=== PATIENT | male | born 1950 | race Caucasian/White ===

== ENCOUNTER → 2019-10-24 12:29 | Outpatient (CLI) | payer MEDICARE, SELFPAY ==
[2019-10-26 12:39] LABS: Peripheral Smear Review Scanned Result
== END ==
PROVIDERS: PCP Emergency Medicine; Visit Provider Emergency Medicine
DX: D64.9 Anemia, unspecified (principal)

== ENCOUNTER → 2019-11-17 08:21 | Outpatient (CLI) | payer MEDICARE, SELFPAY ==
[2019-11-17 08:31] LABS: Alanine Aminotransferase 38 U/L (12-78); Albumin Level 3.2 g/dl (3.5-5.0); Alkaline Phosphatase 508 U/L (38-126); Anion Gap 10.9 mEq/L (5-15); Aspartate Amino Transferase 69 U/L (17-59); Basophils # 0.1 K/mm3 (0-0.2); Blood Urea Nitrogen 33 mg/dl (9-20); Calcium 11.8 mg/dl (8.4-10.2); Carbon Dioxide 28 mmol/L (22.0-30.0); Chloride 105 mmol/L (98-107); Eosinophils % 0.2 % (0.1-12.0); Estimated Glomerular Filt Rate 50 ml/min (>60); GFR (African American) 60 ML/MIN (>60); Globulin 3.2 g/dL (1.3-3.2); Glucose 162 mg/dl (74-100); Hematocrit 36.6 % (42.0-52.0); Hemoglobin 12.5 g/dL (14.1-18.0); Lymphocytes # 1.7 K/mm3 (0.7-4.5); Lymphocytes % 24.7 % (10-50); Mean Corpuscular Hemoglobin 25.6 pg (27.0-31.2); Mean Corpuscular Volume 75.3 fl (80-94); Mean Platelet Volume 8.6 fl (7.4-10.4); Monocytes # 0.4 K/mm3 (0.1-1.0); Monocytes % 5.5 % (1.7-9.3); Neutrophils # 4.7 K/mm3 (1.8-7.8); Neutrophils % 68.6 % (37.0-80.0); Platelet Count 83 K/mm3 (142-424); Potassium 3.9 mmoL/L (3.5-5.1); Red Blood Count 4.87 M/mm3 (4.60-6.20); Red Cell Distribution Width 19.9 % (11.5-17.5); Sodium 140 mmol/L (136-145); Total Protein,Serum 6.4 g/dl (6.3-8.2); White Blood Count 6.8 K/mm3 (4.8-10.8)
[2019-11-17 08:32] LABS: Ammonia 12 umol/L (9-30)
[2019-11-17 08:47] LABS: Bilirubin,Direct 1.4 mg/dl (0.0-0.4); Bilirubin,Indirect 0.6 mg/dL (0.0-0.9)
[2019-11-17 12:35] LABS: Thyroid Stimulating Hormone 2.89 uIU/mL (0.465-4.68)
[2019-11-17 13:10] LABS: Vitamin B12 > 1000 pg/mL (239-931)
[2019-11-17 14:20] LABS: Iron 44 ug/dL (49-181)
[2019-11-17 14:31] LABS: Total Iron Binding Capacity 279 ug/dL (261-462)
[2019-11-17 14:55] LABS: Ferritin 102 ng/ml (17.9-464)
== END ==
PROVIDERS: Visit Provider Emergency Medicine
DX: R41.0 Disorientation, unspecified (principal); R94.5 Abnormal results of liver function studies; D64.9 Anemia, unspecified
CPT/HCPCS: 80053; 82140; 82248; 82607; 82728; 82746; 83540; 83550; 84443; 85025

== ENCOUNTER 2019-11-18 13:44 | Inpatient (IN) | payer OTHER, MEDICARE, SELFPAY ==
[2019-11-18] VITALS (18 sets, daily range): BP systolic 108–141; BP diastolic 70–82; PULSE 88–111; RESP 16–20; TEMP 36.4–36.8; O2SAT 90–99; BMI 24.3; BMI 22.0
--- NOTE | 2019-11-18 13:49 | HMH.EDABDPAI ---
ED Disposition Clinical Impression: Decompensated hepatic cirrhosis, Ileus GI bleed Qualifiers: GI bleed type/associated pathology: unspecified gastrointestinal hemorrhage type Qualified Code(s): K92.2 - Gastrointestinal hemorrhage, unspecified Altered mental status Qualifiers: Altered mental status type: unspecified Qualified Code(s): R41.82 - Altered mental status, unspecified Disposition: Admitted As Inpatient Condition on Discharge: Good Instructions: DI for Acute Abdomen, DI for Altered Mental Status Referrals: PCP,No [Primary Care Provider] - - Critical Care Critical Care Time: No Attestation: On , the high probability of a clinically significant, sudden or life threatening deterioration of the following system(s) required my full and direct attention, intervention and personal management. The time I documented below is in addition to time spent performing reported procedures but includes the following listed in this critical care notation. Medical Decision Making - Nolan Inquiry Pt receiving controlled substance: No Vital Signs: 11/18/19 13:44 11/18/19 14:44 11/18/19 16:00 Temperature 98 F Temperature Source Oral Pulse Rate [Left Radial] 102 H 88 95 H Respiratory Rate 18 18 20 Blood Pressure [Right Arm] 108/70 L 115/73 128/75 Blood Pressure Mean [Right Arm] 82 87 92 Blood Pressure Source [Right Arm] Automatic Cuff Automatic Cuff Blood Pressure Position [Right Arm] Sitting Sitting Sitting 02 Sat by Pulse Oximetry 92 L 99 96 Oxygen Delivery Method Room Air Room Air Room Air - Lab Data Lab Results 11/18/19 13:50: WBC 5.0 D, RBC 4.52 L, Hgb 11.1 L, Hct 34.6 L, MCV 76.6 L, MCH 24.6 L, MCHC 32.1, RDW 20.1 H, Plt Count 65 L, MPV 8.2, Neut % (Auto) 65.0, Lymph % (Auto) 28.1, [place] % (Auto) 5.8, Eos % (Auto) 0.3, Baso % (Auto) 0.7, Neut # (Auto) 3.3, Lymph # (Auto) 1.4, [place] # (Auto) 0.3, Eos # (Auto) 0.0, Baso # (Auto) 0.0 11/18/19 13:50: Sodium 138, Potassium 3.6, Chloride 105, Carbon Dioxide 28, Anion Gap 8.6, BUN 38 H, Creatinine 1.50 H, Estimated Creat Clear 46, Estimated GFR 46 L, Est GFR ( Amer) 56 L, Glucose 174 H, Calcium 11.6 H, Total Bilirubin 2.3 H, AST 90 H D, ALT 42, Alkaline Phosphatase 398 H, Total Protein 6.0 L, Albumin 2.9 L, Globulin 3.1, Albumin/Globulin Ratio 0.9 L, Lipase 141 11/18/19 13:50: Lactate 1.7 11/18/19 13:50: PT 11.3, INR 1.11 H 11/18/19 13:50: SARS-CoV-2 IgG Ab (Rapid) Positive A, SARS-CoV-2 IgM Ab (Rapid) Positive A 11/18/19 14:35: Urine Color Dk yellow, Urine Appearance Cloudy, Urine pH 5.5, Ur Specific [place] >= 1.030, Urine Protein 2+, Urine Glucose (UA) Negative, Urine Ketones Trace, Urine Blood Negative, Urine Nitrate Negative, Urine Bilirubin Negative, Urine Urobilinogen 1.0, Ur Leukocyte Esterase Negative, Urine WBC 3-5, Ur Squamous Epith Cells 3-5 11/18/19 14:35: Stool Occult Blood Positive A 11/18/19 17:00: Ammonia < 9 L Result diagrams: 11/18/19 13:50 11/18/19 13:50 Orders (Tests/Meds): ED MEDICATIONS Discontinued Medications Generic Name Dose Route Start Last Admin Trade Name Freq PRN Reason Stop Dose Admin Lactated Ringer's 1,000 mls @ 999 mls/hr 11/18/19 14:00 11/18/19 14:06 Lactated Ringer's 1000 Ml Bag IV 11/18/19 15:00 999 mls/hr .Q1H1M MAXINE Administration Ceftriaxone Sodium 1 gm/ 50 mls @ 100 mls/hr 11/18/19 15:29 11/18/19 15:41 Sodium Chloride IV 11/18/19 15:58 100 mls/hr ONCE ONE Administration Protocol Pantoprazole Sodium 80 mg/ 100 mls @ 100 mls/hr 11/18/19 15:41 11/18/19 16:00 Sodium Chloride IV 11/18/19 16:40 100 mls/hr ONCE ONE Administration ORDERS Category Date Time Status CT abdomen pelvis wo con Stat Cat Scan 11/18/19 13:51 Taken XR chest AP Stat Exams 11/18/19 13:51 Taken Covid-19 Nasal PCR ([facility]) Routine Lab 11/18/19 17:00 Received Blood Culture Stat Micro 11/18/19 13:50 Received - Radiology Data #1 Image(s): Chest Image Reviewed: Yes I reviewed the p
--- NOTE | 2019-11-18 13:51 | XR_ITS ---
PROCEDURE: XR CHEST AP CLINICAL HISTORY: altered mental status COMPARISON: No exams were available for comparison FINDINGS: The cardiomediastinal silhouette and pulmonary vascularity are within normal limits considering a poor inspiratory effort. There are sternal wire sutures and surgical clips likely from previous bypass procedure. The lungs are clear without infiltrates, suspicious nodules, or pleural effusions. No acute bony abnormalities. IMPRESSION: No acute findings. Dictated by: Dr. Kumar Campbell MD 11/18/2019 19:44 Dr. Kumar Campbell MD in [place] 11/18/2019 19:44
--- NOTE | 2019-11-18 13:51 | CT_ITS ---
PROCEDURE: CT ABDOMEN PELVIS WO CON CLINICAL INDICATION: altered mental status, distended abdomen COMPARISON: No exams were available for comparison TECHNIQUE: Axial images obtained with sagittal and coronal reformats. All CT scans at the facility use one or more dose reduction, viz: automated exposure control, ma/kV adjustment per patient size (including targeted exams where dose is matched to indication, i.e. head), or iterative reconstruction technique. FINDINGS: Lower thorax: There is minimal atelectasis at the right lung base, there is minimal pleural thickening or possibly a tiny pleural effusion left posterior gutter. ABDOMEN: Liver: The liver is normal in size and shows no focal lesions. There is mild cortical nodularity of the liver capsule. There is moderate ascitic fluid surrounding the right lobe of the liver and the spleen. There is ascitic fluid extending along the right pericolic gutter. Gallbladder: The gallbladder is moderately distended but shows no definite gallstones or sludge. Pancreas: No masses or peripancreatic fluid collections. Spleen: Mild splenomegaly with a few scattered punctate calcifications. Adrenals: The right adrenal gland is normal, there is a small nodule left adrenal gland isodense and likely representing an adenoma. Kidneys/ureters: The kidneys are normal in size with no calculi and there is no obstructive uropathy of either kidney. ABDOMEN & PELVIS: Stomach and bowel: The small bowel appears grossly normal though there is moderate ascitic fluid around the small bowel loops. There is a moderate amount stool in the ascending and transverse colon with large amount of stool and gas in the descending and sigmoid colon and rectum. . Peritoneum: Moderate amount of ascitic fluid in abdomen and extending into the pelvis with a large amount in the [place]ouch of [place]. Lymph nodes: No enlarged lymph nodes apparent. Vasculature: There is marked and diffuse arteriosclerotic calcification of the abdominal aorta and proximal iliac arteries but there is no aneurysm. Bones: There are mild multilevel degenerate changes of the lower thoracic and lumbar spine. There are metallic brackets and pedicle screws fusing L5 and S1 stabilizing mild first-degree spondylolisthesis L5 on S1 with bilateral spondylolysis. PELVIS: Reproductive: unremarkable Bladder: There is a Abebe catheter within the urinary bladder which is decompressed with a small amount of air within the urinary bladder secondary to the instrumentation. The prostate is normal size. Appendix: Not definitely identified but there are no findings to suggest appendicitis. IMPRESSION: Moderate abdominal ascites with splenomegaly and mild nodularity of the liver capsule suggesting early cirrhosis of the liver. No evidence of acute intra-abdominal or pelvic pathology Dictated by: Dr. Kumar Campbell MD 11/18/2019 20:04 Dr. Kumar Campbell MD in [place] 11/18/2019 20:04
--- NOTE | 2019-11-18 13:53 | CT_ITS ---
PROCEDURE: CT HEAD/BRAIN WO CON Referring Doctor: Camden Jacobo Patient Age:69Y CLINICAL INDICATION: altered mental status Distended abdomen with change in mental status COMPARISON: No exams were available for comparison TECHNIQUE: Axial images were obtained. All CT scans at the facility use one or more dose reduction, viz: automated exposure control, ma/kV adjustment per patient size (including targeted exams where dose is matched to indication, i.e. head), or iterative reconstruction technique. FINDINGS: No acute intracranial findings. No intracranial hemorrhage. No acute territory infarct identified but the patient has patchy low-density throughout the deep white matter and periventricular regions reflecting chronic small vessel deep white-matter ischemic gliotic changes but difficult to exclude any new features among these but these appear to be old chronic changes but with this there is diffuse cerebral atrophy. Mild ventricular dilatation due to such. There is also an old area encephalomalacia and focal volume loss at the inferior right cerebellar hemisphere which are suggestive of a focal area of old insult and and old infarct. No acute appearing findings.. . No mass or midline shift nor mass effect. No subdural or extra-axial fluid collection is evident. Posterior fossa unremarkable. . Right periorbital swelling which extends through the supra orbital regions and towards the base of the nose of reflecting the recent trauma... Minimal focal hematoma and swelling here. Underlying skull intact. . Nomastoid effusions. Mastoid air cells are well developed and clear. Middle ear clear. IAC's symmetric. [place] air-fluid level. Visualized portions of the paranasal sinuses and orbits unremarkable. IMPRESSION: No acute intracranial findings Diffuse cerebral atrophy, advanced for age Prominent chronic small vessel white-matter ischemic gliotic changes. 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 Right periorbital swelling which extends across base of nose; supraorbital region-reflecting the recent trauma Dictated by: Santosh Fry MD 11/18/2019 17:28 Santosh Fry MD in [place] 11/18/2019 17:28
--- NOTE | 2019-11-18 14:05 | PC.NURSE ---
pt moaning in pain. c/o abd and back pain
[2019-11-18 14:18] LABS: Basophils % 0.7 % (0.1-2.0); Eosinophils % 0.3 % (0.1-12.0); Hematocrit 34.6 % (42.0-52.0); Hemoglobin 11.1 g/dL (14.1-18.0); Lymphocytes # 1.4 K/mm3 (0.7-4.5); Lymphocytes % 28.1 % (10-50); Mean Corpuscular HGB Conc 32.1 g/dL (31.8-35.4); Mean Corpuscular Hemoglobin 24.6 pg (27.0-31.2); Mean Corpuscular Volume 76.6 fl (80-94); Mean Platelet Volume 8.2 fl (7.4-10.4); Monocytes # 0.3 K/mm3 (0.1-1.0); Monocytes % 5.8 % (1.7-9.3); Neutrophils # 3.3 K/mm3 (1.8-7.8); Platelet Count 65 K/mm3 (142-424); Red Blood Count 4.52 M/mm3 (4.60-6.20); Red Cell Distribution Width 20.1 % (11.5-17.5)
[2019-11-18 14:23] LABS: Chloride 105 mmol/L (98-107); Sodium 138 mmol/L (136-145)
[2019-11-18 14:24] LABS: Potassium 3.6 mmoL/L (3.5-5.1)
[2019-11-18 14:25] LABS: INR 1.11 (0.9-1.1); Prothrombin Time 11.3 seconds (9.4-11.8)
[2019-11-18 14:26] LABS: Alanine Aminotransferase 42 U/L (12-78); Alkaline Phosphatase 398 U/L (38-126); Anion Gap 8.6 mEq/L (5-15); Aspartate Amino Transferase 90 U/L (17-59); Bilirubin,Total 2.3 mg/dl (0.2-1.3); Blood Urea Nitrogen 38 mg/dl (9-20); Carbon Dioxide 28 mmol/L (22.0-30.0); Creatinine Clearance Estimated 46 mL/min (50-200); Estimated Glomerular Filt Rate 46 ml/min (>60); GFR (African American) 56 ML/MIN (>60); Lipase 141 U/L (23-300)
[2019-11-18 14:27] LABS: Albumin Level 2.9 g/dl (3.5-5.0); Albumin/Globulin Ratio 0.9 (1.1-1.8); Calcium 11.6 mg/dl (8.4-10.2); Globulin 3.1 g/dL (1.3-3.2); Glucose 174 mg/dl (74-100); Lactic Acid 1.7 mmol/L (0.7-2.1)
[2019-11-18 14:41] LABS: Microscopic, Urine URINE MICROSCOPIC (MICROSCOPIC)
[2019-11-18 14:45] LABS: Appearance,Urine CLOUDY (Clear); Bilirubin,Urine Negative (Negative); Blood, Urine Negative (Negative); Color,Urine DK YELLOW (Yellow); Glucose,Urine (UA) Negative (Negative); Ketones,Urine TRACE (Negative); Leukocyte Esterase,Urine Negative (Negative); Nitrate,Urine Negative (Negative); PH,Urine 5.5 (5.0-8.5); Protein,Urine 2+ (Negative); Specific Gravity, Urine >= 1.030 (1.005-1.030)
[2019-11-18 14:47] LABS: Occult Blood,Stool Positive (Negative)
--- NOTE | 2019-11-18 15:00 | PC.NURSE ---
pt resting appears to comfortable after pain meds given
[2019-11-18 15:52] LABS: Coronavirus 19 IgG Antibody Positive (Negative); Coronavirus 19 IgM Antibody Positive (Negative)
--- NOTE | 2019-11-18 16:00 | PC.NURSE ---
pt resting quietly
--- NOTE | 2019-11-18 17:00 | PC.NURSE ---
pt resting quietly.
--- NOTE | 2019-11-18 17:15 | PC.NURSE ---
spoke with pt's son, kathe martinez, and updated on pt's plan of care
[2019-11-18 17:20] LABS: Ammonia < 9 umol/L (9-30)
--- NOTE | 2019-11-18 18:00 | PC.NURSE ---
sunil nj informed of pt's admission and admitting dx.
--- NOTE | 2019-11-18 18:10 | PC.NURSE ---
called lab regarding nasal covid results, states swab is just now starting to run results
--- NOTE | 2019-11-18 18:56 | PC.NURSE ---
iv infusing no redness or swelling noted at site
--- NOTE | 2019-11-18 20:40 | PC.NURSE ---
called lab to check on covid results they stated 20 minutes left
--- NOTE | 2019-11-18 21:49 | PC.NURSE ---
report given to GABRIELLA Galarza
--- NOTE | 2019-11-18 22:05 | PC.NURSE ---
patient up to floor via stretcher.
--- NOTE | 2019-11-18 22:20 | HMH.HP ---
*Admission Date: 11/18/19 *Chief complaint: mental status change *History of present illness: this elderly pt was sent from [facility] with change in mental status - -year-old male with a history of dementia and cirrhosis [facility] for worsening altered mental status and abdominal pain. Patient is nonverbal on initial examination response to exam with grimace but is awake and will redirect to verbal cues. History from EMS demonstrates that he is normally talkative at baseline but has had acute worsening no history of fever, vomiting, or [id number] male with a history of cirrhosis and dementia who presents with worsening altered mental status and abdominal distention with tenderness on exam. Patient is hemodynamically stable and afebrile on arrival. Concern for intra-abdominal infection/acute abdomen. ET abdomen pelvis is ordered with contrast. Chest x-ray is also ordered as well as a head CT for altered mental status and infectious work-up. Laboratory data significant for thrombocytopenia and anemia. Significant coagulopathy based on INR. Occult stool is positive suggesting GI bleed. Due to history of cirrhosis and no evidence of acute hematemesis or variceal bleeding the patient was started on ceftriaxone IV and given a bolus dose of IV pantoprazole. CT of the abdomen pelvis demonstrates no acute mechanical obstruction but evidence of an ileus and moderate ascites. Patient will be admitted for decompensated cirrhosis and worsening altered mental status with a abdominal ileus. Patient was noted to be IgM and IgG plasma positive for COVID-19 and a rapid swab was ordered. Patient was admitted for further evaluation and management. [facility] History I have reviewed the patient's past medical history: Yes Medical History: Reports:: Chronic Obstructive Pulmonary Disease (COPD), Dementia, Diabetes Mellitus Type 2, Hepatitis (autoimmune), Hyperlipidemia *Have you ever received a pneumonia vaccine?: No *Have you received a flu vaccine this season?: No - *Social History Smoking Status: Never smoker Alcohol Intake: never *Occupational Status:: other Housing: other Household Members: other *Travel in the last 8 weeks: None Family Hx:: Unable to obtain Review of Systems - Review of Systems Review of systems:: pertinent systems reviewed and negative unless documented below Meds Home Medications Medication Instructions Recorded Confirmed Type amlodipine 10 mg tablet 10 mg PO DAILY 11/17/19 11/19/19 History aspirin 81 mg tablet,delayed 81 mg PO DAILY 11/17/19 11/19/19 History release atorvastatin 80 mg tablet 80 mg PO DAILY 11/17/19 11/19/19 History donepezil 5 mg tablet 5 mg PO DAILY 11/17/19 11/19/19 History duloxetine 60 mg capsule,delayed 60 mg PO DAILY 11/17/19 11/19/19 History release gabapentin 100 mg capsule 100 mg PO QHS cap 11/17/19 11/19/19 History hydrocodone 5 mg-acetaminophen 325 1 tab PO BID PRN 11/17/19 11/19/19 History mg tablet lactulose 10 gram/15 mL oral 20 g PO TID 11/17/19 11/19/19 History solution metformin 500 mg tablet 500 mg PO BID 11/17/19 11/19/19 History mv,Ca,oar-iljn-zgusf acid-lutein 1 tab PO DAILY tab 11/17/19 11/18/19 History 18 mg iron-400 mcg-6 mg tablet pantoprazole 40 mg granules 40 mg PO DAILY 11/17/19 11/19/19 History delayed-release for susp in packet polyethylene glycol 3350 17 17 g PO DAILY 11/17/19 11/19/19 History gram/dose oral powder ursodiol 500 mg tablet 500 mg PO BID 11/17/19 11/19/19 History Allergies Allergy/AdvReac Type Severity Reaction Status Date / Time No Known Allergies Allergy Verified 11/18/19 13:50 Exam Vital signs and Labs for Last 24 Hours: Temp Pulse Resp BP Pulse Ox 98.2 F 108 H 19 128/77 90 L 11/18/19 21:52 11/18/19 21:56 11/18/19 21:56 11/18/19 21:56 11/18/19 21:56 Laboratory Results - last 24 hr 11/18/19 13:50: WBC 5.0 D, RBC 4.52 L, Hgb 11.1 L, Hct 34.6 L, MCV 76.6 L, M
--- NOTE | 2019-11-19 03:59 | PC.NURSE ---
PT. ABLE TO FOLLOW SOME COMMANDS, UNABLE TO STATE NAME, , YEAR OR PLACE; IS CONFUSED BUT IS ABLE TO STATE SIMPLE NEEDS. ABD DIST WITH ACTIVE BOWEL SOUNDS NOTED. SITE NOTED TO BUTTOCKS, WHITE DRIED EXUDATE WITH SURROUNDING REDNESS NOTED, PICTURES ON CHART; T/R Q2H. PT. CURRENTLY RESTING IN BED WITH EYES CLOSED AT THIS TIME.
[2019-11-19 04:00] VITALS: BP 129/76; PULSE 111; RESP 16; TEMP 36.9; O2SAT 88
[2019-11-19 05:00] VITALS: BMI 22.0
[2019-11-19 06:15] LABS: POC Glucose,Bedside 130 (70-110)
[2019-11-19 07:14] LABS: Basophils % 0.4 % (0.1-2.0); Eosinophils % 0.4 % (0.1-12.0); Hematocrit 31.6 % (42.0-52.0); Hemoglobin 10.8 g/dL (14.1-18.0); Lymphocytes # 1.4 K/mm3 (0.7-4.5); Lymphocytes % 26.3 % (10-50); Mean Corpuscular HGB Conc 34.2 g/dL (31.8-35.4); Mean Corpuscular Hemoglobin 25.3 pg (27.0-31.2); Mean Corpuscular Volume 73.8 fl (80-94); Mean Platelet Volume 8.8 fl (7.4-10.4); Monocytes # 0.3 K/mm3 (0.1-1.0); Monocytes % 4.8 % (1.7-9.3); Neutrophils # 3.6 K/mm3 (1.8-7.8); Neutrophils % 68.1 % (37.0-80.0); Platelet Count 60 K/mm3 (142-424); Red Blood Count 4.28 M/mm3 (4.60-6.20); Red Cell Distribution Width 20.2 % (11.5-17.5); White Blood Count 5.4 K/mm3 (4.8-10.8)
[2019-11-19 07:17] LABS: Chloride 107 mmol/L (98-107)
[2019-11-19 07:18] LABS: Potassium 3.7 mmoL/L (3.5-5.1); Sodium 138 mmol/L (136-145)
[2019-11-19 07:20] LABS: Blood Urea Nitrogen 41 mg/dl (9-20); Creatinine Clearance Estimated 40 mL/min (50-200); Estimated Glomerular Filt Rate 43 ml/min (>60); GFR (African American) 52 ML/MIN (>60)
[2019-11-19 07:21] LABS: Anion Gap 6.7 mEq/L (5-15); Calcium 11.3 mg/dl (8.4-10.2); Carbon Dioxide 28 mmol/L (22.0-30.0); Glucose 136 mg/dl (74-100); Magnesium 2.2 mg/dl (1.6-2.3)
[2019-11-19 08:00] VITALS: BP 139/89; PULSE 110; PULSE 120; RESP 18; TEMP 37.7; O2SAT 92
--- NOTE | 2019-11-19 08:54 | HMH.ACPN2 ---
Internal Medicine - PN: Subj *Date: 11/20/19 *Time: 05:03 Interval history: more alert at this time - no gi bleeding Exam Vital signs and Labs for Last 24 Hours: Temp Pulse Resp BP Pulse Ox 98.5 F 111 H 16 129/76 88 L 11/19/19 04:00 11/19/19 04:00 11/19/19 04:00 11/19/19 04:00 11/19/19 04:00 Laboratory Results - last 24 hr 11/18/19 13:50: WBC 5.0 D, RBC 4.52 L, Hgb 11.1 L, Hct 34.6 L, MCV 76.6 L, MCH 24.6 L, MCHC 32.1, RDW 20.1 H, Plt Count 65 L, MPV 8.2, Neut % (Auto) 65.0, Lymph % (Auto) 28.1, [place] % (Auto) 5.8, Eos % (Auto) 0.3, Baso % (Auto) 0.7, Neut # (Auto) 3.3, Lymph # (Auto) 1.4, [place] # (Auto) 0.3, Eos # (Auto) 0.0, Baso # (Auto) 0.0 11/18/19 13:50: Sodium 138, Potassium 3.6, Chloride 105, Carbon Dioxide 28, Anion Gap 8.6, BUN 38 H, Creatinine 1.50 H, Estimated Creat Clear 46, Estimated GFR 46 L, Est GFR ( Amer) 56 L, Glucose 174 H, Calcium 11.6 H, Total Bilirubin 2.3 H, AST 90 H D, ALT 42, Alkaline Phosphatase 398 H, Total Protein 6.0 L, Albumin 2.9 L, Globulin 3.1, Albumin/Globulin Ratio 0.9 L, Lipase 141 11/18/19 13:50: Lactate 1.7 11/18/19 13:50: PT 11.3, INR 1.11 H 11/18/19 13:50: SARS-CoV-2 IgG Ab (Rapid) Positive A, SARS-CoV-2 IgM Ab (Rapid) Positive A 11/18/19 14:35: Urine Color Dk yellow, Urine Appearance Cloudy, Urine pH 5.5, Ur Specific [place] >= 1.030, Urine Protein 2+, Urine Glucose (UA) Negative, Urine Ketones Trace, Urine Blood Negative, Urine Nitrate Negative, Urine Bilirubin Negative, Urine Urobilinogen 1.0, Ur Leukocyte Esterase Negative, Urine WBC 3-5, Ur Squamous Epith Cells 3-5 11/18/19 14:35: Stool Occult Blood Positive A 11/18/19 17:00: Ammonia < 9 L 11/19/19 06:01: POC Glucose 130 H 11/19/19 06:50: WBC 5.4, RBC 4.28 L, Hgb 10.8 L, Hct 31.6 L, MCV 73.8 L, MCH 25.3 L, MCHC 34.2, RDW 20.2 H, Plt Count 60 L, MPV 8.8, Neut % (Auto) 68.1, Lymph % (Auto) 26.3, [place] % (Auto) 4.8, Eos % (Auto) 0.4, Baso % (Auto) 0.4, Neut # (Auto) 3.6, Lymph # (Auto) 1.4, [place] # (Auto) 0.3, Eos # (Auto) 0.0, Baso # (Auto) 0.0 11/19/19 06:50: Sodium 138, Potassium 3.7, Chloride 107, Carbon Dioxide 28, Anion Gap 6.7, BUN 41 H, Creatinine 1.60 H, Estimated Creat Clear 40, Estimated GFR 43 L, Est GFR ( Amer) 52 L, Glucose 136 H D, Calcium 11.3 H, Magnesium 2.2 I & O for Last 24 hours: Intake & Output 11/16/19 11/17/19 11/18/19 11/19/19 11:59 11:59 11:59 11:59 Output Total 650 / 650 Balance -650 / -650 Weight 145 lb 9.598 oz Microbiology Reports for the Last 24 Hours: Microbiology 11/18/19 17:00 Nasopharyngeal Coronavirus COVID-19 PCR - Final - Constitutional no acute distress - *Routine HEENT Exam Head: Present: normocephalic Eye: Present: EOMI, PERRL. Absent: conjunctival icterus ENT: Present: mucous membranes dry - *Routine Neck Exam Absent: JVD - *Routine Respiratory Exam Present: CTA bilaterally - *Routine Cardiovascular Exam Present: RRR. Absent: murmur - *Routine Abdominal Exam Present: soft. Absent: tenderness - *Routine Extremities Exam Absent: edema - *Routine Skin Exam Present: intact - *Routine Neurological Exam Present: alert, CN II-XII intact - Routine Psychiatric Exam Present: normal affect Assessment and Plan (1) Acute delirium Status: Acute Category: Medical Code(s): R41.0 - Disorientation, unspecified (2) Diabetes mellitus Status: Acute Qualifiers: Diabetes mellitus type: type 2 Diabetes mellitus longterm insulin use: unspecified longterm insulin use status Diabetes mellitus complication status: with other specified complication Qualified Code(s): E11.69 - Type 2 diabetes mellitus with other specified complication Category: Medical Code(s): E11.9 - Type 2 diabetes mellitus without complications (3) Hypercalcemia Status: Acute Category: Medical Code(s): E83.52 - Hypercalcemia (4) Thrombocytopenia Status: Acute Category: Medical Code(s): D69.6 - Thrombocytopenia, unspecified
--- NOTE | 2019-11-19 11:52 | P.CONPHA_ITS ---
[facility] Pharmacy VTE Monitoring - Patient Demographics Admission date: 11/19/19 Report Date: 11/19/19 Time: 11:52 Allergies/Adverse Reactions: Patient Allergies No Known Allergies Allergy (Verified 11/18/19 13:50) Height: 1.73 m Weight: 66.043 kg Patient Problems: Current Active Problems Decompensated hepatic cirrhosis (Acute) GI bleed (Acute) Altered mental status (Acute) Ileus (Acute) Acute delirium (Acute) Diabetes mellitus (Acute) Hypercalcemia (Acute) Thrombocytopenia (Acute) Renal insufficiency (Acute) Ascites (Acute) Splenomegaly (Acute) Cirrhosis (Acute) S/P CABG (coronary artery bypass graft) (Acute) Cerebral atrophy (Acute) Dementia (Acute) COVID-19 virus IgM antibody detected (Acute) COVID-19 virus IgG antibody detected (Acute) - VTE Risk Labs: VTE Related Lab Results Hgb 10.8 g/dL (14.1-18.0) L 11/19/19 06:50 Hct 31.6 % (42.0-52.0) L 11/19/19 06:50 Plt Count 60 K/mm3 (142-424) L 11/19/19 06:50 PT 11.3 seconds (9.4-11.8) 11/18/19 13:50 INR 1.11 (0.9-1.1) H 11/18/19 13:50 BUN 41 mg/dl (9-20) H 11/19/19 06:50 Creatinine 1.60 mg/dl (0.66-1.25) H 11/19/19 06:50 Estimated Creat Clear 40 mL/min (50-200) 11/19/19 06:50 - Prophylaxis Types of VTE Prophylaxis: TEDS Knee High (MARIA ESTHER HOSE ORDER PLACED.) Location of Applied Device: Bilateral Lower Extremeties
[2019-11-19 13:57] LABS: POC Glucose,Bedside 131 (70-110)
--- NOTE | 2019-11-19 14:00 | PC.NURSE ---
PT IS RESTING IN BED ON HIS LEFT SIDE. PT MOANS IN PAIN EVERY TIME HE IS MOVED OR REPOSITIONED. UNABLE TO VOICE HIS NAME/. RASH NOTED ALL OVER BODY ( PCP AWARE AND HE STATES THIS IS A CHRONIC ISSUE) UNSTAGEABLE ULCER NOTED TO COCCYX (MALODOROUS) AND RT HEEL (HEEL PROTECTORS IN PLACE) DRESSING C/D/I TO THE COCCYX. POA WAS CALLED TO GET CONSENT FOR PICTURES AND ALSO TO VERIFY DNR STATUS. ORAL CARE PROVIDED. ABDOMEN SOFT/NON TENDER WITH ACTIVE BOWEL SOUNDS. G-TUBE IN PLACE. PCP WANTS TUBE FEEDS ON HOLD FOR NOW. LUNG SOUNDS HAVE SCATTERED RHONCHI. VSS. WILL CONTINUE TO MONITOR.
[2019-11-19 15:53] VITALS: BP 138/78; PULSE 121; RESP 18; TEMP 37.7; O2SAT 91
[2019-11-19 18:22] LABS: POC Glucose,Bedside 133 (70-110)
--- NOTE | 2019-11-19 19:05 | PC.NURSE ---
PT IS RESTING IN BED. PT WILL RESPOND TO VERBAL STIMULI BUT IS UNABLE TO VERBALIZE HIS NAME/. TURNED AND REPOSITIONED Q2H. MILD ASCITES NOTED TO THE ABDOMEN. LUNG SOUNDS CLEAR. HYPOACTIVE BOWEL SOUNDS. TEDS NOTED TO BLE. ORAL CARE PROVIDED FREQUENTLY. AREA NOTED TO THE COCCYX. VSS. PT HAS NOT HAD A BOWEL MOVEMENT THIS SHIFT. WILL CONTINUE TO MONITOR.
[2019-11-19 19:21] VITALS: BP 153/77; PULSE 118; RESP 22; TEMP 36.7; O2SAT 90
[2019-11-19 19:58] VITALS: PULSE 118; O2SAT 90
[2019-11-19 20:50] LABS: POC Glucose,Bedside 151 (70-110)
[2019-11-20 04:28] VITALS: BP 135/82; PULSE 113; RESP 24; TEMP 36.4; O2SAT 95
--- NOTE | 2019-11-20 04:34 | PC.NURSE ---
PT HAS SLEPT ENTIRE SHIFT. PT MOANS WHEN YOU SAY HIS NAME OR REPOSITION HIM BUT UNABLE TO ANSWER QUESTIONS TO DETERMINE LEVEL OF ORIENTATION. PT HAS BEEN TURNED AND ORAL CARE Q2. LUNGS HAVE RHONCHI THROUGHOUT AND O2 SATURATION IN LOW TO MID 90'S ON 2LNC. ABDOMEN IS ROUND, DISTENDED AND NON-TENDER WITH ACTIVE BS IN ALL QUADS. NO BM THIS SHIFT. PACE CATHETER IS SECURE, PATENT, AND DRAINING DARK YELLOW URINE. HEART RATE IS REGULAR. NO DISTRESS NOTED. VSS. WILL CONTINUE TO MONITOR
[2019-11-20 05:33] VITALS: BMI 21.8
[2019-11-20 05:50] LABS: POC Glucose,Bedside 147 (70-110)
[2019-11-20 07:28] LABS: Chloride 110 mmol/L (98-107); Potassium 3.3 mmoL/L (3.5-5.1); Sodium 141 mmol/L (136-145)
[2019-11-20 07:29] LABS: Basophils % 0.4 % (0.1-2.0); Eosinophils % 0.3 % (0.1-12.0); Hematocrit 30.2 % (42.0-52.0); Hemoglobin 10.3 g/dL (14.1-18.0); Lymphocytes # 1.2 K/mm3 (0.7-4.5); Lymphocytes % 22.2 % (10-50); Mean Corpuscular HGB Conc 34.1 g/dL (31.8-35.4); Mean Corpuscular Hemoglobin 25.4 pg (27.0-31.2); Mean Corpuscular Volume 74.5 fl (80-94); Mean Platelet Volume 9.1 fl (7.4-10.4); Monocytes # 0.3 K/mm3 (0.1-1.0); Monocytes % 6.5 % (1.7-9.3); Neutrophils # 3.7 K/mm3 (1.8-7.8); Neutrophils % 70.6 % (37.0-80.0); Platelet Count 67 K/mm3 (142-424); Red Blood Count 4.06 M/mm3 (4.60-6.20); Red Cell Distribution Width 20.3 % (11.5-17.5); White Blood Count 5.2 K/mm3 (4.8-10.8)
[2019-11-20 07:31] LABS: Anion Gap 10.3 mEq/L (5-15); Blood Urea Nitrogen 46 mg/dl (9-20); Calcium 10.8 mg/dl (8.4-10.2); Carbon Dioxide 24 mmol/L (22.0-30.0); Creatinine Clearance Estimated 37 mL/min (50-200); Estimated Glomerular Filt Rate 40 ml/min (>60); GFR (African American) 48 ML/MIN (>60); Glucose 151 mg/dl (74-100)
[2019-11-20 08:00] VITALS: BP 142/85; PULSE 118; RESP 20; TEMP 36.7; O2SAT 93
--- NOTE | 2019-11-20 08:27 | HMH.ACPN2 ---
Internal Medicine - PN: Subj *Date: 11/21/19 *Time: 03:27 Interval history: pt doing ok- labs ok - will add abx for possible abd infection Exam Vital signs and Labs for Last 24 Hours: Temp Pulse Resp BP Pulse Ox 98.1 F 118 H 20 142/85 H 93 L 11/20/19 08:00 11/20/19 08:00 11/20/19 08:00 11/20/19 08:00 11/20/19 08:00 Laboratory Results - last 24 hr 11/19/19 12:10: POC Glucose 131 H 11/19/19 16:14: POC Glucose 133 H 11/19/19 20:37: POC Glucose 151 H 11/20/19 05:43: POC Glucose 147 H 11/20/19 06:46: WBC 5.2, RBC 4.06 L, Hgb 10.3 L, Hct 30.2 L, MCV 74.5 L, MCH 25.4 L, MCHC 34.1, RDW 20.3 H, Plt Count 67 L, MPV 9.1, Neut % (Auto) 70.6, Lymph % (Auto) 22.2, [place] % (Auto) 6.5, Eos % (Auto) 0.3, Baso % (Auto) 0.4, Neut # (Auto) 3.7, Lymph # (Auto) 1.2, [place] # (Auto) 0.3, Eos # (Auto) 0.0, Baso # (Auto) 0.0 11/20/19 06:46: Sodium 141, Potassium 3.3 L, Chloride 110 H, Carbon Dioxide 24, Anion Gap 10.3, BUN 46 H, Creatinine 1.70 H, Estimated Creat Clear 37, Estimated GFR 40 L, Est GFR ( Amer) 48 L, Glucose 151 H, Calcium 10.8 H I & O for Last 24 hours: Intake & Output 11/17/19 11/18/19 11/19/19 11/20/19 11:59 11:59 11:59 11:59 Intake Total 426 / 426 342 / 342 Output Total 650 / 650 700 / 700 Balance -224 / -224 -358 / -358 Weight 145 lb 9.598 oz 144 lb 2 oz - Constitutional no acute distress, chronically ill appearing - *Routine HEENT Exam Head: Present: normocephalic Eye: Present: EOMI, PERRL. Absent: conjunctival icterus ENT: Present: mucous membranes dry - *Routine Neck Exam Present: supple - *Routine Respiratory Exam Present: decreased breath sounds - *Routine Cardiovascular Exam Present: RRR, murmur - *Routine Abdominal Exam Present: soft, tenderness - *Routine Extremities Exam Absent: calf tenderness - *Routine Skin Exam Present: intact - *Routine Neurological Exam Present: CN II-XII intact - Routine Psychiatric Exam Present: unable to assess Assessment and Plan (1) Acute delirium Status: Acute Category: Medical Code(s): R41.0 - Disorientation, unspecified (2) Diabetes mellitus Status: Acute Qualifiers: Diabetes mellitus type: type 2 Diabetes mellitus group home insulin use: unspecified progress clerk insulin use status Diabetes mellitus complication status: with other specified complication Qualified Code(s): E11.69 - Type 2 diabetes mellitus with other specified complication Category: Medical Code(s): E11.9 - Type 2 diabetes mellitus without complications (3) Hypercalcemia Status: Acute Category: Medical Code(s): E83.52 - Hypercalcemia (4) Thrombocytopenia Status: Acute Category: Medical Code(s): D69.6 - Thrombocytopenia, unspecified (5) Renal insufficiency Status: Acute Category: Medical Code(s): N28.9 - Disorder of kidney and ureter, unspecified (6) Ascites Status: Acute Qualifiers: Ascites type: other type Qualified Code(s): R18.8 - Other ascites Category: Medical Code(s): R18.8 - Other ascites (7) Splenomegaly Status: Acute Category: Medical Code(s): R16.1 - Splenomegaly, not elsewhere classified (8) Cirrhosis Status: Acute Qualifiers: Hepatic cirrhosis type: unspecified hepatic cirrhosis Ascites presence: with ascites Qualified Code(s): K74.60 - Unspecified cirrhosis of liver; R18.8 - Other ascites Category: Medical Code(s): K74.60 - Unspecified cirrhosis of liver (9) S/P CABG (coronary artery bypass graft) Status: Acute Category: Surgical Code(s): Z95.1 - Presence of aortocoronary bypass graft (10) Cerebral atrophy Status: Acute Category: Medical Code(s): G31.9 - Degenerative disease of nervous system, unspecified (11) Dementia Status: Acute Qualifiers: Dementia type: unspecified type Dementia behavioral disturbance: without behavioral disturbance Qualified Code(s): F03.90 - Unspecified dementia without behavioral disturbance
[2019-11-20 11:15] VITALS: BMI 21.8
[2019-11-20 13:01] LABS: POC Glucose,Bedside 148 (70-110)
[2019-11-20 16:00] VITALS: BP 134/83; PULSE 74; RESP 20; TEMP 36.6; O2SAT 100
--- NOTE | 2019-11-20 17:30 | PC.NURSE ---
PT IS RESTING IN BED. NO COMPLAINTS AT THIS TIME. PT WILL RESPOND TO VERBAL STIMULI BUT HAS NOT YET VERBALIZED HIS NAME OR . TURN AND REPOSITIONED Q2H. PT HAS HAD A TOTAL OF 3 LARGE SOFT/DARK TARRY STOOLS THIS SHIFT. (PCP NOTIFIED). PCP STATED TO ORDER A CBC FOR 2100 THIS EVENING AND HE WOULD LIKELY HAVE SEE PT TOMORROW. PT HAS BEEN NPO SINCE ADMISSION. ORAL CARE PROVIDED FREQUENTLY. LUNG SOUNDS CLEAR. BOWEL SOUNDS NORMAL . ABDOMEN IS SOFT/TENDER WITH ASCITES NOTED. O2 SATURATION HAS MAINTAINED 90-95% ON 2 L NC. PT HAS A SMALL AREA NOTED TO THE COCCYX. WILL CONTINUE TO MONITOR.
[2019-11-20 18:06] VITALS: O2SAT 92
[2019-11-20 18:31] LABS: POC Glucose,Bedside 140 (70-110)
[2019-11-20 20:00] VITALS: PULSE 120; RESP 22
[2019-11-20 20:30] LABS: POC Glucose,Bedside 141 (70-110)
[2019-11-20 20:52] VITALS: BP 135/59; PULSE 120; RESP 18; TEMP 36.8; O2SAT 92
[2019-11-20 21:21] LABS: Basophils % 0.5 % (0.1-2.0); Eosinophils % 0.3 % (0.1-12.0); Hematocrit 31.9 % (42.0-52.0); Hemoglobin 11.1 g/dL (14.1-18.0); Lymphocytes # 1.2 K/mm3 (0.7-4.5); Lymphocytes % 20.5 % (10-50); Mean Corpuscular HGB Conc 34.7 g/dL (31.8-35.4); Mean Corpuscular Hemoglobin 25.7 pg (27.0-31.2); Mean Platelet Volume 10.4 fl (7.4-10.4); Monocytes # 0.3 K/mm3 (0.1-1.0); Monocytes % 5.1 % (1.7-9.3); Neutrophils # 4.3 K/mm3 (1.8-7.8); Neutrophils % 73.7 % (37.0-80.0); Platelet Count 62 K/mm3 (142-424); Red Blood Count 4.31 M/mm3 (4.60-6.20); Red Cell Distribution Width 20.5 % (11.5-17.5); White Blood Count 5.9 K/mm3 (4.8-10.8)
[2019-11-21 04:26] VITALS: BP 146/86; PULSE 64; RESP 22; TEMP 36.9; O2SAT 95
--- NOTE | 2019-11-21 04:34 | PC.NURSE ---
shift summary, pt has rested well t/o shift, has had 3 loose stools this shift, black tarry, loose and large, abdomen is soft, tender with ascites noted, catheter remains in place, draining cloudy, wesley urine, strong smelling urine, pt has remained on 2L NC with O2 sats from 92-95%
[2019-11-21 05:30] VITALS: BMI 21.8
[2019-11-21 05:41] LABS: POC Glucose,Bedside 140 (70-110)
[2019-11-21 06:25] LABS: Chloride 114 mmol/L (98-107); Potassium 3.3 mmoL/L (3.5-5.1); Sodium 144 mmol/L (136-145)
[2019-11-21 06:27] LABS: Alanine Aminotransferase 51 U/L (12-78); Ammonia 36 umol/L (9-30); Aspartate Amino Transferase 103 U/L (17-59); Bilirubin,Direct 0.6 mg/dl (0.0-0.4); Bilirubin,Indirect 1.2 mg/dL (0.0-0.9); Bilirubin,Total 1.8 mg/dl (0.2-1.3); Bilirubin,Unconjugated 1.2 mg/dL (0.0-1.1); Blood Urea Nitrogen 49 mg/dl (9-20); Creatinine Clearance Estimated 37 mL/min (50-200); Estimated Glomerular Filt Rate 40 ml/min (>60); GFR (African American) 48 ML/MIN (>60)
[2019-11-21 06:28] LABS: Albumin Level 2.7 g/dl (3.5-5.0); Alkaline Phosphatase 365 U/L (38-126); Anion Gap 11.3 mEq/L (5-15); Carbon Dioxide 22 mmol/L (22.0-30.0); Glucose 162 mg/dl (74-100); Total Protein,Serum 5.9 g/dl (6.3-8.2)
[2019-11-21 06:32] LABS: Basophils % 0.3 % (0.1-2.0); Hematocrit 32.7 % (42.0-52.0); Hemoglobin 11.1 g/dL (14.1-18.0); Lymphocytes # 1.1 K/mm3 (0.7-4.5); Lymphocytes % 16.3 % (10-50); Mean Corpuscular HGB Conc 34.1 g/dL (31.8-35.4); Mean Corpuscular Hemoglobin 25.3 pg (27.0-31.2); Mean Corpuscular Volume 74.3 fl (80-94); Mean Platelet Volume 10.4 fl (7.4-10.4); Monocytes # 0.4 K/mm3 (0.1-1.0); Monocytes % 5.4 % (1.7-9.3); Neutrophils # 5.5 K/mm3 (1.8-7.8); Platelet Count 57 K/mm3 (142-424); Red Cell Distribution Width 20.6 % (11.5-17.5)
[2019-11-21 08:00] VITALS: BP 140/74; PULSE 69; RESP 22; TEMP 37.7; O2SAT 95
[2019-11-21 08:15] VITALS: RESP 20; O2SAT 95
--- NOTE | 2019-11-21 09:03 | HMH.ACPN2 ---
Internal Medicine - PN: Subj *Date: 11/21/19 *Time: 08:30 Interval history: pt laying in bed Exam Vital signs and Labs for Last 24 Hours: Temp Pulse Resp BP Pulse Ox 98.4 F 64 22 146/86 H 95 11/21/19 04:26 11/21/19 04:26 11/21/19 04:26 11/21/19 04:26 11/21/19 04:26 Laboratory Results - last 24 hr 11/20/19 11:33: POC Glucose 148 H 11/20/19 16:10: POC Glucose 140 H 11/20/19 20:22: POC Glucose 141 H 11/20/19 21:10: WBC 5.9, RBC 4.31 L, Hgb 11.1 L, Hct 31.9 L, MCV 74.0 L, MCH 25.7 L, MCHC 34.7, RDW 20.5 H, Plt Count 62 L, MPV 10.4, Neut % (Auto) 73.7, Lymph % (Auto) 20.5, [place] % (Auto) 5.1, Eos % (Auto) 0.3, Baso % (Auto) 0.5, Neut # (Auto) 4.3, Lymph # (Auto) 1.2, [place] # (Auto) 0.3, Eos # (Auto) 0.0, Baso # (Auto) 0.0 11/21/19 05:29: POC Glucose 140 H 11/21/19 05:55: WBC 7.0, RBC 4.40 L, Hgb 11.1 L, Hct 32.7 L, MCV 74.3 L, MCH 25.3 L, MCHC 34.1, RDW 20.6 H, Plt Count 57 L, MPV 10.4, Neut % (Auto) 78.0, Lymph % (Auto) 16.3, [place] % (Auto) 5.4, Eos % (Auto) 0.0 L, Baso % (Auto) 0.3, Neut # (Auto) 5.5, Lymph # (Auto) 1.1, [place] # (Auto) 0.4, Eos # (Auto) 0.0, Baso # (Auto) 0.0 11/21/19 05:55: Sodium 144, Potassium 3.3 L, Chloride 114 H, Carbon Dioxide 22, Anion Gap 11.3, BUN 49 H, Creatinine 1.70 H, Estimated Creat Clear 37, Estimated GFR 40 L, Est GFR ( Amer) 48 L, Glucose 162 H, Calcium 11.0 H, Total Bilirubin 1.8 H, Direct Bilirubin 0.6 H, Conjugated Bilirubin 0.0, Indirect Bilirubin 1.2 H, Unconjugated Bilirubin 1.2 H, AST 103 H, ALT 51, Alkaline Phosphatase 365 H, Total Protein 5.9 L, Albumin 2.7 L 11/21/19 05:55: Ammonia 36 H I & O for Last 24 hours: Intake & Output 11/18/19 11/19/19 11/20/19 11/21/19 11:59 11:59 11:59 11:59 Intake Total 426 / 426 342 / 342 2716 / 2716 Output Total 650 / 650 700 / 700 575 / 575 Balance -224 / -224 -358 / -358 2141 / 2141 Weight 145 lb 9.598 oz 144 lb 2.917 oz 144 lb 2 oz Microbiology Reports for the Last 24 Hours: Microbiology 11/18/19 13:50 Blood Blood Culture - Preliminary NO GROWTH AFTER 48 HOURS 11/18/19 13:50 Blood Blood Culture - Preliminary NO GROWTH AFTER 48 HOURS - Constitutional no acute distress, thin, chronically ill appearing - *Routine HEENT Exam Head: Present: normocephalic Eye: Present: PERRL ENT: Present: mucous membranes moist - *Routine Neck Exam Present: supple. Absent: lymphadenopathy - *Routine Respiratory Exam Present: CTA bilaterally - *Routine Cardiovascular Exam Present: RRR - *Routine Abdominal Exam Present: soft, normoactive bowel sounds. Absent: tenderness, distended, guarding - *Routine Extremities Exam Present: normal capillary refill. Absent: cyanosis, clubbing, edema - *Routine Skin Exam Present: warm. 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 insulin use status Diabetes mellitus complication status: with other specified complication Qualified Code(s): E11.69 - Type 2 diabetes mellitus with other specified complication Category: Medical Code(s): E11.9 - Type 2 diabetes mellitus without complications (3) Hypercalcemia Status: Acute Category: Medical Code(s): E83.52 - Hypercalcemia (4) Thrombocytopenia Status: Acute Category: Medical Code(s): D69.6 - Thrombocytopenia, unspecified (5) Renal insufficiency Status: Acute Category: Medical Code(s): N28.9 - Disorder of kidney and ureter, unspecified (6) Ascites Status: Acute Qualifiers: Ascites type: other type Qualified Code(s): R18.8 - Other ascites Category: Medical Code(s): R18.8
--- NOTE | 2019-11-21 09:07 | PC.NURSE ---
SPOKE TO LUCIANO (PRE OP) ABOUT M[facility]OZ CONSULT.
--- NOTE | 2019-11-21 10:47 | SW/DCPLANNER ---
I have spoke with Deepika from [facility]. Deepika has stated that this patient is currently I[facility] level of care. Patient information has been faxed to Deepika. Discharge date is unknown at this time but I continue to update Deepika.
[2019-11-21 12:50] LABS: POC Glucose,Bedside 169 (70-110)
[2019-11-21 16:00] VITALS: BP 126/62; PULSE 120; RESP 20; TEMP 36.9; O2SAT 92
--- NOTE | 2019-11-21 16:15 | PC.NURSE ---
Called down to post op where Dr. Girons was at, asked kary walton to ask if was going to round. Marixa Walton RN states she will call me back
--- NOTE | 2019-11-21 16:20 | PC.NURSE ---
No changed noted from previous assessment. Patient a/o x0, arousal to name and touch. Pleural rub noted on right lung lucio. diminished throughout. bowel sounds hypoactive in all quadrants. ascites noted to abdomen. patient is on oxygen 2L. stage 2 pressure area noted on buttocks, polymem applied. also noted a red area on lower right buttock. patient is a q2 turn. will continue to monitor.
--- NOTE | 2019-11-21 17:19 | HMH.CONS ---
*Admission Date: 11/19/19 *Reason for consult:: decompensated cirrhosis *History of present illness: This is a 69-year-old male with a past medical history of autoimmune hepatitis on ursodiol 500 mg twice daily and CKD stage III. He also has a history of dementia with behavioral disturbances. He was admitted to the hospital with altered mental status. Ammonia levels were normal upon arrival but today ammonia levels at 36 and he was started on lactulose. CT scan does show cortical nodularity of the liver capsule with moderate ascitic fluid in the right paracolic gutter, surrounding the right lobe of the liver and around small bowel loops there is a moderate amount of stool in ascending and transverse colon with a large amount of stool and gas in the descending and sigmoid colon and rectum. His abdomen is moderately distended on exam. Unable to evaluate if it is painful to the touch. The patient is awake with eyes open but not responsive to verbal questions. He does respond to noxious stimuli and he does moan. He moves his extremities independently. He is an [facility] resident with multiple comorbidities. On admission he did have a low-grade temp of 99.9 and, elevated heart rate of 120, O2 sat 92% on 2 L nasal cannula. He is on antibiotics currently. He did have an elevated creatinine of 1.6 with a history of CKD stage III. He currently has bilirubin of 1.8, all unconjugated but both direct and indirect., He has an AST of 103 and an ALT of 51 with an alk phos of 365. His lipase is within normal limits. His INR is elevated at 1.11. He does have a mild anemia with hemoglobin of 11.1 and positive Hemoccult however his platelets are low at 57. He did have a positive IgM and IgG of COVID but a negative nasal swab. He currently has a meld score of 15. [facility] History I have reviewed the patient's past medical history: Yes Medical History: Reports:: Atherosclerotic Heart Disease, Chronic Obstructive Pulmonary Disease (COPD), Dementia, Diabetes Mellitus Type 2, Hepatitis (autoimmune), Hyperlipidemia Denies:: Diabetes Mellitus Type 1, MRSA *Have you ever received a pneumonia vaccine?: No *Have you received a flu vaccine this season?: No Other Medical History: Reports: Anemia, Arthritis Other Surgeries: Yes: Cardiac Surgery (VALVE REPLACEMENT) - *Social History Smoking Status: Never smoker Alcohol Intake: former *Occupational Status:: disabled Housing: senior living Household Members: other *Travel in the last 8 weeks: None Family Hx:: Unable to obtain Review of Systems - Review of Systems Review of systems:: unable to obtain Patient is nonverbal and nonresponsive to questioning. Meds Home Medications Medication Instructions Recorded Confirmed Type amlodipine 10 mg tablet 10 mg PO DAILY 11/17/19 11/19/19 History aspirin 81 mg tablet,delayed 81 mg PO DAILY 11/17/19 11/19/19 History release atorvastatin 80 mg tablet 80 mg PO DAILY 11/17/19 11/19/19 History donepezil 5 mg tablet 5 mg PO DAILY 11/17/19 11/19/19 History duloxetine 60 mg capsule,delayed 60 mg PO DAILY 11/17/19 11/19/19 History release gabapentin 100 mg capsule 100 mg PO HS cap 11/17/19 11/19/19 History hydrocodone 5 mg-acetaminophen 325 1 tab PO BID 11/17/19 11/19/19 History mg tablet lactulose 10 gram/15 mL oral 60 ml PO TID 11/17/19 11/19/19 History solution metformin 500 mg tablet 500 mg PO BID 11/17/19 11/19/19 History mv,Ca,dyn-ozap-egnhn acid-lutein 1 tab PO DAILY tab 11/17/19 11/18/19 History 18 mg iron-400 mcg-6 mg tablet polyethylene glycol 3350 17 17 g PO DAILY 11/17/19 11/19/19 History gram/dose oral powder ursodiol 500 mg tablet 500 mg PO BID 11/17/19 11/19/19 History Ferrous Sulfate [Ferrous Sulfate 325 mg PO DAILY 11/19/19 11/19/19 History 325mg Tab] Lidocaine [Aspercreme] 1 each TP DAILY 11/19/19 11/19/19 History Pantoprazole Sodium 40 mg PO DAILY 11/19/19 11/19/19 History Allergies Allergy/AdvReac Type Sever
--- NOTE | 2019-11-21 17:30 | PC.NURSE ---
PATIENTS SON CAME TO DOOR TO SPEAK WITH NURSE. SON IS WANTING POC. HAVE NOT HEARD ANYTHING BACK FROM GI. WILL CALL PRIMARY DOCTOR TO TRY TO GET AN ANSWER FOR POC.
--- NOTE | 2019-11-21 18:00 | PC.NURSE ---
UPON ENTERING PATIENTS ROOM PATIENT FOUND TO BE WARM. ORAL TEMP NOTED TO BE 100.0. PATIENT ABLE TO AROUSE TO TOUCH AND VOICE. PATIENT GRIMACING STATING HE IS IN PAIN. BP OBTAINED ANOUT 132/74, PULSE OX NOTED TO BE 86 % ON 2 L PER NC AND HEART RATE 109. APPLIED HUMIDIFIED OXYGEN TO PATIENT NC AND BUMPED TO 4L PATIENT IS 88-90%. HEART RATE DECREASED TO 69. FAMILY AT BEDSIDE. NO DISTRESS NOTED. WILL CALL MD FOR PAIN MED ORDER
--- NOTE | 2019-11-21 19:00 | PC.NURSE ---
PT PLACED ON [id number] R/T OXYGEN 85%. OXYGEN NOW 95 AFTER A FEW MINUTES ON [id number]. DR. UP TO COME UP AND SPEAK WITH FAMILY WHEN HE ARRIVES TO ED
[2019-11-21 19:51] LABS: POC Glucose,Bedside 144 (70-110)
[2019-11-21 20:00] VITALS: PULSE 76; RESP 22; O2SAT 94
[2019-11-21 20:06] VITALS: BP 128/68; PULSE 76; RESP 22; TEMP 37.9; O2SAT 94
[2019-11-21 20:53] LABS: POC Glucose,Bedside 140 (70-110)
[2019-11-22 04:00] VITALS: BP 127/73; PULSE 93; RESP 20; TEMP 36.8; O2SAT 99
--- NOTE | 2019-11-22 04:21 | PC.NURSE ---
shift summary, no acute changes from prior assessment, O2 sats on non rebreather from 94-99%, lungs diminished t/o with pleural rub, temperatures from 98.2-100.3, polymem changed on buttocks, catheter in place draining cloudy wesley urine
[2019-11-22 05:00] VITALS: BMI 21.7
[2019-11-22 05:15] LABS: POC Glucose,Bedside 157 (70-110)
[2019-11-22 06:59] LABS: Chloride 119 mmol/L (98-107); Sodium 147 mmol/L (136-145)
[2019-11-22 07:00] LABS: Potassium 3.4 mmoL/L (3.5-5.1)
[2019-11-22 07:02] LABS: Alanine Aminotransferase 46 U/L (12-78); Albumin Level 2.5 g/dl (3.5-5.0); Albumin/Globulin Ratio 0.8 (1.1-1.8); Alkaline Phosphatase 319 U/L (38-126); Anion Gap 6.4 mEq/L (5-15); Aspartate Amino Transferase 86 U/L (17-59); Bilirubin,Total 1.6 mg/dl (0.2-1.3); Blood Urea Nitrogen 52 mg/dl (9-20); Calcium 11.2 mg/dl (8.4-10.2); Carbon Dioxide 25 mmol/L (22.0-30.0); Creatinine Clearance Estimated 33 mL/min (50-200); Estimated Glomerular Filt Rate 35 ml/min (>60); GFR (African American) 42 ML/MIN (>60); Globulin 3.1 g/dL (1.3-3.2); Glucose 165 mg/dl (74-100); Total Protein,Serum 5.6 g/dl (6.3-8.2)
[2019-11-22 07:21] LABS: Basophils % 0.5 % (0.1-2.0); Eosinophils % 0.3 % (0.1-12.0); Hematocrit 33.8 % (42.0-52.0); Hemoglobin 10.7 g/dL (14.1-18.0); Lymphocytes # 0.9 K/mm3 (0.7-4.5); Lymphocytes % 15.8 % (10-50); Mean Corpuscular HGB Conc 31.7 g/dL (31.8-35.4); Mean Corpuscular Hemoglobin 24.7 pg (27.0-31.2); Mean Platelet Volume 9.3 fl (7.4-10.4); Monocytes # 0.3 K/mm3 (0.1-1.0); Monocytes % 5.4 % (1.7-9.3); Neutrophils # 4.4 K/mm3 (1.8-7.8); Neutrophils % 78.1 % (37.0-80.0); Red Blood Count 4.33 M/mm3 (4.60-6.20); Red Cell Distribution Width 20.6 % (11.5-17.5); White Blood Count 5.6 K/mm3 (4.8-10.8)
[2019-11-22 07:25] LABS: Platelet Count 49 K/mm3 (142-424)
[2019-11-22 07:57] VITALS: BP 133/83; PULSE 125; RESP 18; TEMP 37.2; O2SAT 99
--- NOTE | 2019-11-22 08:28 | HMH.ACPN2 ---
Internal Medicine - PN: Subj *Date: 11/22/19 *Time: 12:16 Interval history: 69-year-old male lying in bed, no acute distress. Unresponsive to verbal, but responsive to tactile stimuli. Pt status discussed w/ last evening per Dr. Cade and Son. GI has seen and recommends: He has a meld score of 15 but that can also be related to the history of stage III CKD. Given his comorbidities he would not be a candidate for liver transplant. If this is true autoimmune hepatitis he may benefit from the addition of Entocort to reduce the alk phos as ursodiol does not seem to be enough in this situation. More aggressive treatment of the underlying autoimmune hepatitis may improve his decompensation of cirrhosis as well. Also given the significant underlying constipation and possible encephalopathy regardless of minimally elevated ammonia levels, he may benefit from daily lactulose dosing even after discharge. He is anemic with a positive Hemoccult but after discussion with Dr. Marion, given his decompensated cirrhosis and comorbidities, we feel he may be a candidate for hospice at some point. Depending on the patient's next of kin or healthcare surrogate or power of director global intelligence's wishes regarding this patient, he may not be a good candidate for an EGD. As the hemoglobin level shows only very mild anemia even with a positive Hemoccult,and very low platelet count, the risks of procedure may outweigh the rewards of treatment. If he were to begin to drop his hemoglobin level more rapidly the risk versus benefit conversation may change. However, further decision making may be based on his POA's plans for how aggressive to be with this patient's care. He might benefit from therapeutic paracentesis and will benefit from treatment for his constipation. In the short-term, I will recommend to continue regular lactulose dosing and may decrease to twice daily upon discharge or adjust dose to produce 2-3 loose Bms per day. Also will recommend adding Entocort (budesonide) 9 mg PO daily to his 500 mg of ursodiol twice daily to attempt to produce better outcomes with the autoimmune hepatitis. Exam Vital signs and Labs for Last 24 Hours: Temp Pulse Resp BP Pulse Ox 98.9 F 125 H 18 133/83 99 11/22/19 07:57 11/22/19 07:57 11/22/19 07:57 11/22/19 07:57 11/22/19 07:57 Laboratory Results - last 24 hr 11/21/19 11:32: POC Glucose 169 H 11/21/19 16:17: POC Glucose 144 H 11/21/19 20:39: POC Glucose 140 H 11/22/19 05:07: POC Glucose 157 H 11/22/19 06:22: WBC 5.6, RBC 4.33 L, Hgb 10.7 L, Hct 33.8 L, MCV 78.0 L, MCH 24.7 L, MCHC 31.7 L, RDW 20.6 H, Plt Count 49 L*, MPV 9.3, Neut % (Auto) 78.1, Lymph % (Auto) 15.8, [place] % (Auto) 5.4, Eos % (Auto) 0.3, Baso % (Auto) 0.5, Neut # (Auto) 4.4, Lymph # (Auto) 0.9, [place] # (Auto) 0.3, Eos # (Auto) 0.0, Baso # (Auto) 0.0 11/22/19 06:22: Sodium 147 H, Potassium 3.4 L, Chloride 119 H, Carbon Dioxide 25, Anion Gap 6.4, BUN 52 H, Creatinine 1.90 H, Estimated Creat Clear 33, Estimated GFR 35 L, Est GFR ( Amer) 42 L, Glucose 165 H, Calcium 11.2 H, Total Bilirubin 1.6 H, AST 86 H, ALT 46, Alkaline Phosphatase 319 H, Total Protein 5.6 L, Albumin 2.5 L, Globulin 3.1, Albumin/Globulin Ratio 0.8 L I & O for Last 24 hours: Intake & Output 11/19/19 11/20/19 11/21/19 11/22/19 23:59 23:59 23:59 23:59 Intake Total 768 / 768 1773 / 1773 1770 / 1770 952 / 952 Output Total 1050 / 1050 500 / 750 776 / 996 220 / 220 Balance -282 / -282 1273 / 1023 994 / 774 732 / 732 Weight 145 lb 9.598 oz 144 lb 2.917 oz 144 lb 2 oz 143 lb 1 oz - Constitutional thin, chronically ill appearing - *Routine HEENT Exam Head: Present: normocephalic ENT: Present: mucous membranes moist - *Routine Neck Exam Present: trachea midline. Absent: tracheal deviation - *Routine Respiratory Exam Present: CTA bilaterally, diminished air movement. Absent: accessory muscle use - *Routine Cardiovascular Exam Present: RRR - *Routine Abdominal
--- NOTE | 2019-11-22 09:16 | CT_ITS ---
PROCEDURE: CT ABDOMEN PELVIS WO CON CLINICAL INDICATION: Ascites Evaluate ascites, distended abdomen COMPARISON: CT CT ABDOMEN PELVIS WO CON from 11/18/2019 CR XR CHEST PORTABLE from 11/22/2019 TECHNIQUE: Axial images obtained with sagittal and coronal reformats. All CT scans at the facility use one or more dose reduction, viz: automated exposure control, ma/kV adjustment per patient size (including targeted exams where dose is matched to indication, i.e. head), or iterative reconstruction technique. FINDINGS: LOWER THORAX: Atelectatic changes are present in the lung bases. There has been a prior CABG with coronary artery calcifications noted. ABDOMEN & PELVIS: There is diffuse ascites. The liver has a somewhat irregular margin. There is splenomegaly. There is mild diffuse thickening of the gastric wall. The kidneys and adrenal glands have an unremarkable appearance as does the pancreas. There is mild diffuse increased density of the peritoneal fat may in part be due to the ascites. The volume of ascites has increased compared to the previous exam. Postsurgical changes are present at the lumbosacral junction with degenerative disc disease. There is 11 mm anterolisthesis of L5 on S1. There is a Abebe catheter present. IMPRESSION: Cirrhosis with diffuse ascites and splenomegaly consistent with portal hypertension. There has been interval increase in ascites compared to the previous exam. Persistent gastric wall thickening nonspecific but could be seen with gastritis. Dictated by: Min Burr MD 11/22/2019 12:32 Min Burr MD in [place] 11/22/2019 12:32
--- NOTE | 2019-11-22 09:16 | XR_ITS ---
PROCEDURE: XR CHEST PORTABLE CLINICAL HISTORY: Febrile COMPARISON: CR XR CHEST AP from 11/18/2019 FINDINGS: There has been a prior median sternotomy. Normal heart size. The lungs are clear without infiltrates, suspicious nodules, or pleural effusions. No acute bony abnormalities. IMPRESSION: No acute findings. Dictated by: Min Burr MD 11/22/2019 12:53 Min Burr MD in [facility] 11/22/2019 12:53
[2019-11-22 09:49] LABS: Ammonia 32 umol/L (9-30)
[2019-11-22 10:14] LABS: Prothrombin Time 12.3 seconds (9.4-11.8)
[2019-11-22 10:15] LABS: INR 1.12 (0.9-1.1)
--- OUTSIDE RECORDS SUMMARY | 2019-11-22 11:37 | XMS_ITS | Continuity of Care Document ---
:1950 Author Organization [facility] Address [address] [place] [address] Phone Care Team Providers Name Role Phone Christelle Cade Primary Care Provider Christelle Cade Attending Provider Jasmine Mary Attending Provider Allergies, Adverse Reactions, Alerts No known allergies. Medications Medication Status Dose Units Route Sig Qty Days Start End Instruct ions Date Date Amlodipine Active 10 MG PO Daily November Bes, (Amlodipine 2020 10mg Tab) 10:30am 10 mg tablet Aspirin (Low Active 81 MG PO Daily November Dose Aspirin , ) 81 mg 2020 tablet,delaye 10:30am d release (DR/EC) Atorv
[2019-11-22 11:45] LABS: POC Glucose,Bedside 144 (70-110)
--- NOTE | 2019-11-22 14:54 | PC.NURSE ---
PATIENT WILL NOT ANSWER THIS RN QUESTIONS. PATIENT WILL OPEN EYES WHEN NAME IS SPOKE OR UPON MOVEMENT. PATIENT DOES REFUSE CARE. PATIENT GRIMACES WITH MOVEMENT OF HEAD AND Q2 HR TURNS. PATIENT HAS REFUSED LACTULOSE MEDICATION, THIS RN EDUCATED PATIENT THE IMPORTANCE OF THIS MEDICATION. PATIENT WILL NOT VERBALIZE AN UNDERSTANDING OR NOD IN AGREEMENT. PATIENT ALLOWED THIS RN TO PERFORM ORAL CARE AT FIRST ADL ASSESSMENT. PATIENT HAS REFUSED ALL OTHER ORAL CARE. AT THIS TIME, PATIENT IS ON 3L HUMIDIFIED NC STATS AT 93%. NO OTHER CONCERNS AT THIS TIME.
[2019-11-22 15:37] VITALS: BP 139/74; PULSE 106; RESP 19; TEMP 37.2; O2SAT 95
[2019-11-22 16:46] LABS: POC Glucose,Bedside 132 (70-110)
[2019-11-22 19:45] VITALS: PULSE 112; RESP 16; O2SAT 97
[2019-11-22 20:00] VITALS: BP 123/75; PULSE 112; RESP 20; TEMP 37.6; O2SAT 97
[2019-11-22 21:07] LABS: POC Glucose,Bedside 147 (70-110)
[2019-11-22 21:57] LABS: Chloride 120 mmol/L (98-107); Potassium 3.5 mmoL/L (3.5-5.1)
[2019-11-22 22:00] LABS: Anion Gap 11.5 mEq/L (5-15); Blood Urea Nitrogen 54 mg/dl (9-20); Calcium 11.4 mg/dl (8.4-10.2); Carbon Dioxide 22 mmol/L (22.0-30.0); Creatinine Clearance Estimated 37 mL/min (50-200); Estimated Glomerular Filt Rate 40 ml/min (>60); GFR (African American) 48 ML/MIN (>60); Glucose 161 mg/dl (74-100)
[2019-11-22 22:03] LABS: Sodium 150 mmol/L (136-145)
[2019-11-23 04:00] VITALS: BP 135/73; PULSE 108; RESP 20; TEMP 36.8; O2SAT 97
--- NOTE | 2019-11-23 04:12 | PC.NURSE ---
shift summary, no acute changes since prior assessment, pt was restless at beginning of shift but more responsive that previous evening, responds when his name is said, pt did rest after the beginning of shift, has remained on 3 L NC with O2 sats at 97%, rectal temps from 98.3-99.6, pt remains tachy with HR 108-112, catheter in place draining cloudy urine with sediment, wesley in color with a strong odor, 575 mL out so far this shift
[2019-11-23 05:00] VITALS: BMI 21.6
[2019-11-23 05:36] LABS: POC Glucose,Bedside 145 (70-110)
[2019-11-23 07:32] LABS: Basophils % 0.5 % (0.1-2.0); Eosinophils % 0.5 % (0.1-12.0); Lymphocytes # 1.4 K/mm3 (0.7-4.5); Lymphocytes % 20.1 % (10-50); Mean Corpuscular HGB Conc 30.5 g/dL (31.8-35.4); Mean Corpuscular Hemoglobin 24.3 pg (27.0-31.2); Mean Corpuscular Volume 79.8 fl (80-94); Mean Platelet Volume 9.9 fl (7.4-10.4); Monocytes # 0.4 K/mm3 (0.1-1.0); Monocytes % 5.8 % (1.7-9.3); Neutrophils % 73.2 % (37.0-80.0); Platelet Count 54 K/mm3 (142-424); Red Blood Count 4.52 M/mm3 (4.60-6.20); White Blood Count 6.9 K/mm3 (4.8-10.8)
[2019-11-23 07:42] LABS: Chloride 121 mmol/L (98-107); Potassium 3.6 mmoL/L (3.5-5.1)
[2019-11-23 07:44] LABS: Alanine Aminotransferase 44 U/L (12-78); Aspartate Amino Transferase 90 U/L (17-59); Blood Urea Nitrogen 53 mg/dl (9-20); Creatinine Clearance Estimated 37 mL/min (50-200); Estimated Glomerular Filt Rate 40 ml/min (>60); GFR (African American) 48 ML/MIN (>60)
[2019-11-23 07:45] LABS: Albumin Level 2.5 g/dl (3.5-5.0); Albumin/Globulin Ratio 0.8 (1.1-1.8); Alkaline Phosphatase 323 U/L (38-126); Anion Gap 8.6 mEq/L (5-15); Bilirubin,Total 1.7 mg/dl (0.2-1.3); Calcium 11.6 mg/dl (8.4-10.2); Carbon Dioxide 24 mmol/L (22.0-30.0); Globulin 3.1 g/dL (1.3-3.2); Glucose 158 mg/dl (74-100); Total Protein,Serum 5.6 g/dl (6.3-8.2)
[2019-11-23 07:50] LABS: Sodium 150 mmol/L (136-145)
--- NOTE | 2019-11-23 07:50 | PC.NURSE ---
Lab called with a critical lab value of sodium 150. Dr. Cade aware.
[2019-11-23 08:00] VITALS: BP 121/80; PULSE 110; RESP 20; TEMP 37.1; O2SAT 95
--- NOTE | 2019-11-23 08:10 | HMH.ACPN2 ---
Internal Medicine - PN: Subj *Date: 11/23/19 *Time: 12:42 Interval history: 69-year-old male patient lying in bed resting quietly with eyes closed. Patient is unresponsive to verbal stimuli responds with moans to tactile stimuli. Ammonia level this a.m. is 26 11/23/2019 chest x-ray reveals no acute findings 11/23/2019 abdomen/pelvis CT: FINDINGS: LOWER THORAX: Atelectatic changes are present in the lung bases. There has been a prior CABG with coronary artery calcifications noted. ABDOMEN & PELVIS: There is diffuse ascites. The liver has a somewhat irregular margin. There is splenomegaly. There is mild diffuse thickening of the gastric wall. The kidneys and adrenal glands have an unremarkable appearance as does the pancreas. There is mild diffuse increased density of the peritoneal fat may in part be due to the ascites. The volume of ascites has increased compared to the previous exam. Postsurgical changes are present at the lumbosacral junction with degenerative disc disease. There is 11 mm anterolisthesis of L5 on S1. There is a Abebe catheter present. IMPRESSION: Cirrhosis with diffuse ascites and splenomegaly consistent with portal hypertension. There has been interval increase in ascites compared to the previous exam. Persistent gastric wall thickening nonspecific but could be seen with gastritis. Dictated by: Burr, Exam Vital signs and Labs for Last 24 Hours: Temp Pulse Resp BP Pulse Ox 98.3 F 108 H 20 135/73 97 11/23/19 04:00 11/23/19 04:00 11/23/19 04:00 11/23/19 04:00 11/23/19 04:00 Laboratory Results - last 24 hr 11/22/19 09:30: Ammonia 32 H 11/22/19 09:30: PT 12.3 H, INR 1.12 H 11/22/19 11:36: POC Glucose 144 H 11/22/19 16:38: POC Glucose 132 H 11/22/19 20:13: POC Glucose 147 H 11/22/19 21:14: Sodium 150 H, Potassium 3.5, Chloride 120 H, Carbon Dioxide 22, Anion Gap 11.5, BUN 54 H, Creatinine 1.70 H, Estimated Creat Clear 37, Estimated GFR 40 L, Est GFR ( Amer) 48 L, Glucose 161 H, Calcium 11.4 H 11/23/19 05:26: POC Glucose 145 H 11/23/19 07:00: WBC 6.9, RBC 4.52 L, Hgb 11.0 L, Hct 36.0 L, MCV 79.8 L, MCH 24.3 L, MCHC 30.5 L, RDW 21.0 H, Plt Count 54 L, MPV 9.9, Neut % (Auto) 73.2, Lymph % (Auto) 20.1, [place] % (Auto) 5.8, Eos % (Auto) 0.5, Baso % (Auto) 0.5, Neut # (Auto) 5.0, Lymph # (Auto) 1.4, [place] # (Auto) 0.4, Eos # (Auto) 0.0, Baso # (Auto) 0.0 11/23/19 07:00: Sodium 150 H, Potassium 3.6, Chloride 121 H, Carbon Dioxide 24, Anion Gap 8.6, BUN 53 H, Creatinine 1.70 H, Estimated Creat Clear 37, Estimated GFR 40 L, Est GFR ( Amer) 48 L, Glucose 158 H, Calcium 11.6 H, Total Bilirubin 1.7 H, AST 90 H, ALT 44, Alkaline Phosphatase 323 H, Total Protein 5.6 L, Albumin 2.5 L, Globulin 3.1, Albumin/Globulin Ratio 0.8 L I & O for Last 24 hours: Intake & Output 11/20/19 11/21/19 11/22/19 11/23/19 23:59 23:59 23:59 23:59 Intake Total 1773 / 1773 1770 / 1770 1609 / 1609 1150 / 1150 Output Total 500 / 750 776 / 996 220 / 720 575 / 575 Balance 1273 / 1023 994 / 774 1389 / 889 575 / 575 Weight 144 lb 2.917 oz 144 lb 2 oz 143 lb 1 oz 142 lb 12.165 oz - Constitutional thin, chronically ill appearing - *Routine HEENT Exam Head: Present: atraumatic ENT: Present: mucous membranes moist - *Routine Neck Exam Present: trachea midline. Absent: tracheal deviation - *Routine Respiratory Exam Present: diminished air movement. Absent: accessory muscle use - *Routine Cardiovascular Exam Present: RRR - *Routine Abdominal Exam Present: soft, normoactive bowel sounds. Absent: firm - *Routine Extremities Exam Present: pulses intact. Absent: edema, calf tenderness - *Routine Skin Exam Present: intact, warm. Absent: cyanosis, wounds - *Routine Neurological Exam Present: altered mental status. Absent: alert - Routine Psychiatric Exam Present: unable to assess Assessment and Plan (1) Acute delirium Status: Acute Category: Medical Code(s)
[2019-11-23 09:31] LABS: Ammonia 26 umol/L (9-30)
--- NOTE | 2019-11-23 11:40 | CARE MANAGER ---
Contacted [facility]. Discussed patient's status. Both are agreeable to Hospice seeing patient. GABRIELLA Alaniz
[2019-11-23 11:55] LABS: POC Glucose,Bedside 137 (70-110)
--- NOTE | 2019-11-23 11:59 | SW/DCPLANNER ---
Addendum entered by Nerissa Wilcox 11/24/19 07:00: FAMILY DID MEET WITH HOSPICE LATE YESTERDAY AFTERNOON AND DID AGREE TO HAVE HOSPICE BENEFITS FOR THIS PATIENT...THEY ELECTED TO DO AN INPATIENT/PALLIATIVE CARE FOR HIM TO STAY HERE... WILL CALL [facility] THIS MORNING AND LET MERA KNOW.... FAMILY SHOULD NOTIFY [facility] TO COLLECT PATIENTS BELONGINGS... SUPPORTIVE CARE WILL BE PROVIDED FROM THIS STAFF ALONG WITH HOSPICE. Addendum entered by Nerissa Wilcox 11/23/19 15:17: SPOKE WITH YOON AT HOSPICE AND SHE STATED THE HOSPICE NURSE WILL MEET WITH FAMILY THIS EVENING AT 5:45 TO DISCUSS HOSPICE CARE... I HAVE CALLED THE NURSE AND INFORMED HER THE SONS WILL BE HER AROUND THAT TIME... Original Note: RECEIVED REFERRAL FOR A HOSPICE CONSULT FOR THIS PATIENT TO BE SEEN HERE AT [facility] BEFORE HE IS TO GO BACK TO [facility].. I HAVE GIVEN THE SONS PHONE NUMBER MEERA... TO CONTACT FOR A TIME TO MEET WITH HIM AND HIS BROTHER... I HAVE ALSO LEFT A VOICE MESSAGE WITH [facility] TO MAKE SURE IF THEY DO ELECT HOSPICE HE CAN RETURN BACK THERE....
--- NOTE | 2019-11-23 13:12 | HMH.ACPN ---
Internal Medicine - PN: Subj *Date: 11/23/19 *Time: 13:12 Exam Vital signs and Labs for Last 24 Hours: Temp Pulse Resp BP Pulse Ox 98.7 F 110 H 20 121/80 95 11/23/19 08:00 11/23/19 08:00 11/23/19 08:00 11/23/19 08:00 11/23/19 08:00 Laboratory Results - last 24 hr 11/22/19 16:38: POC Glucose 132 H 11/22/19 20:13: POC Glucose 147 H 11/22/19 21:14: Sodium 150 H, Potassium 3.5, Chloride 120 H, Carbon Dioxide 22, Anion Gap 11.5, BUN 54 H, Creatinine 1.70 H, Estimated Creat Clear 37, Estimated GFR 40 L, Est GFR ( Amer) 48 L, Glucose 161 H, Calcium 11.4 H 11/23/19 05:26: POC Glucose 145 H 11/23/19 07:00: WBC 6.9, RBC 4.52 L, Hgb 11.0 L, Hct 36.0 L, MCV 79.8 L, MCH 24.3 L, MCHC 30.5 L, RDW 21.0 H, Plt Count 54 L, MPV 9.9, Neut % (Auto) 73.2, Lymph % (Auto) 20.1, [place] % (Auto) 5.8, Eos % (Auto) 0.5, Baso % (Auto) 0.5, Neut # (Auto) 5.0, Lymph # (Auto) 1.4, [place] # (Auto) 0.4, Eos # (Auto) 0.0, Baso # (Auto) 0.0 11/23/19 07:00: Sodium 150 H, Potassium 3.6, Chloride 121 H, Carbon Dioxide 24, Anion Gap 8.6, BUN 53 H, Creatinine 1.70 H, Estimated Creat Clear 37, Estimated GFR 40 L, Est GFR ( Amer) 48 L, Glucose 158 H, Calcium 11.6 H, Total Bilirubin 1.7 H, AST 90 H, ALT 44, Alkaline Phosphatase 323 H, Total Protein 5.6 L, Albumin 2.5 L, Globulin 3.1, Albumin/Globulin Ratio 0.8 L 11/23/19 09:10: Ammonia 26 11/23/19 11:48: POC Glucose 137 H I & O for Last 24 hours: Intake & Output 11/20/19 11/21/19 11/22/19 11/23/19 23:59 23:59 23:59 23:59 Intake Total 1773 / 1773 1770 / 1770 1609 / 1609 1150 / 1150 Output Total 500 / 750 776 / 996 220 / 720 575 / 575 Balance 1273 / 1023 994 / 774 1389 / 889 575 / 575 Weight 65.4 kg 65.374 kg 64.892 kg 64.755 kg Microbiology Reports for the Last 24 Hours: Microbiology 11/22/19 09:17 Urine,Catheterized Urine Culture - Preliminary NO GROWTH AFTER 24 HOURS Assessment and Plan (1) Acute delirium Status: Acute Category: Medical Code(s): R41.0 - Disorientation, unspecified (2) Diabetes mellitus Status: Acute Qualifiers: Diabetes mellitus type: type 2 Diabetes mellitus retirement insulin use: unspecified 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 insulin use status Diabetes mellitus complication status: with other specified complication Qualified Code(s): E11.69 - Type 2 diabetes mellitus with other specified complication Category: Medical Code(s): E11.9 - Type 2 diabetes mellitus without complications (3) Hypercalcemia Status: Acute Category: Medical Code(s): E83.52 - Hypercalcemia (4) Thrombocytopenia Status: Acute Category: Medical Code(s): D69.6 - Thrombocytopenia, unspecified (5) Renal insufficiency Status: Acute Category: Medical Code(s): N28.9 - Disorder of kidney and ureter, unspecified (6) Ascites Status: Acute Qualifiers: Ascites type: other type Qualified Code(s): R18.8 - Other ascites Category: Medical Code(s): R18.8 - Other ascites (7) Splenomegaly Status: Acute Category: Medical Code(s): R16.1 - Splenomegaly, not elsewhere classified (8) Cirrhosis Status: Acute Qualifiers: Hepatic cirrhosis type: unspecified hepatic cirrhosis Ascites presence: with ascites Qualified Code(s): K74.60 - Unspecified cirrhosis of liver; R18.8 - Other ascites Category: Medical Code(s): K74.60 - Unspecified cirrhosis of liver (9) S/P CABG (coronary artery bypass graft) Status: Acute Category: Surgical Code(s): Z95.1 - Presence of aortocoronary bypass graft (10) Cerebral atrophy Status: Acute Category: Medical Code(s): G31.9 - Degenerative disease of nervous system, unspecified (11) Dementia Status: Acute Qualifiers: Dementia type: unspecified type Dementia behavioral disturbance: without behavioral disturbance Qualified Code(s): F03.90 - Unspecified dementia without behavioral disturbance Category: Medical Code(s): F03.90 - Unspecified dementia witho
[2019-11-23 16:00] VITALS: BP 133/77; PULSE 115; RESP 24; TEMP 36.7; O2SAT 96
--- NOTE | 2019-11-23 16:55 | DIET.NUTRFU ---
Pt remains NPO. 3# total weight loss. He is malnourished. Hospice consult this pm, will follow hospice recommendations/pt and family wishes for meeting nutritional needs.
[2019-11-23 18:57] VITALS: O2SAT 94
--- NOTE | 2019-11-23 18:57 | PC.NURSE ---
Pt's room air sat at rest = 88%.
[2019-11-23 20:00] VITALS: PULSE 109; RESP 24; O2SAT 97
[2019-11-23 20:37] LABS: POC Glucose,Bedside 131 (70-110)
[2019-11-23 20:46] VITALS: BP 152/63; PULSE 109; RESP 24; TEMP 36.6; O2SAT 97
--- NOTE | 2019-11-23 21:02 | PC.NURSE ---
Per Hospice nurse, Dr. Zaidi would like for levsin 0.125 mg 1-2 tabs PO q 4 hours PRN to be put in and given to the patient. They also want fluids to be d/c, fingersticks to be d/c, and antibiotics to be d/c. Pt was accepted by hospice and they will be back to see him tomorrow.
--- NOTE | 2019-11-23 21:19 | PC.NURSE ---
ALERT TO SELF. PT HAS TOLERATED 3L NC WELL THROUGHOUT SHIFT. EXPIRATORY AND INSPIRATORY RHONCHI WELL EXPIRATORY WHEEZES NOTED THROUGHOUT LUNGS. PT HAS BE SINUS TACH THIS SHIFT. ACTIVE BOWEL SOUNDS HEARD IN ALL 4 QUADRANTS. SOFT AND NONTENDER ABDOMEN. PT HAS HAD 2 LIQUID BROWN BMS THIS SHIFT. PACE INTACT W CLOUDY SEDIMENT STACEY URINE NOTED. NO KINKS NOTED. PT HAS SLEPT MOST OF THE SHIFT. HOSPICE CAME TO SEE THE PATIENT AND ACCEPTED HIM. SON WAS AT BEDSIDE AND AGREED FOR PT TO BE ON HOSPICE. NEW ORDERS RECEIVED FROM DR BRO, HOSPICE PT WAS TURNED Q2 HOURS TO PREVENT SKIN BREAKDOWN. ORAL CARE Q2 HOURS. BED ALARM ON TO PROMOTE SAFETY. BED IN LOWEST POSITION. CALL LIGHT WITHIN REACH. VSS. WILL CONTINUE TO MONITOR.
[2019-11-24 03:26] VITALS: BP 128/77; PULSE 112; RESP 18; TEMP 36.6; O2SAT 97
--- NOTE | 2019-11-24 04:26 | PC.NURSE ---
shift summary, no acute changes since prior assessment, pt has remained on 2L NC this shift with O2 sats at 97%, inspiratory and expiratory rhonchi auscultated t/o lungs, pt has remained tachy this shift with HR from 109-112, pt has only been responsive hen attempting to reposition, pt will moan briefly and pull away, catheter remains in place draining cloudy wesley urine with sediment
[2019-11-24 05:00] VITALS: BMI 22.0
[2019-11-24 06:29] LABS: Basophils % 0.6 % (0.1-2.0); Eosinophils % 0.4 % (0.1-12.0); Hematocrit 39.2 % (42.0-52.0); Hemoglobin 11.6 g/dL (14.1-18.0); Lymphocytes # 1.6 K/mm3 (0.7-4.5); Lymphocytes % 23.5 % (10-50); Mean Corpuscular HGB Conc 29.7 g/dL (31.8-35.4); Mean Corpuscular Hemoglobin 24.2 pg (27.0-31.2); Mean Corpuscular Volume 81.3 fl (80-94); Mean Platelet Volume 8.8 fl (7.4-10.4); Monocytes # 0.4 K/mm3 (0.1-1.0); Neutrophils # 4.7 K/mm3 (1.8-7.8); Neutrophils % 69.5 % (37.0-80.0); Platelet Count 53 K/mm3 (142-424); Red Blood Count 4.82 M/mm3 (4.60-6.20); Red Cell Distribution Width 21.1 % (11.5-17.5); White Blood Count 6.8 K/mm3 (4.8-10.8)
[2019-11-24 06:35] LABS: Chloride 124 mmol/L (98-107)
[2019-11-24 06:36] LABS: Ammonia < 9 umol/L (9-30); Potassium 3.9 mmoL/L (3.5-5.1)
[2019-11-24 06:38] LABS: Alanine Aminotransferase 43 U/L (12-78); Alkaline Phosphatase 315 U/L (38-126); Aspartate Amino Transferase 90 U/L (17-59); Bilirubin,Total 1.8 mg/dl (0.2-1.3); Blood Urea Nitrogen 55 mg/dl (9-20); Creatinine Clearance Estimated 37 mL/min (50-200); Estimated Glomerular Filt Rate 40 ml/min (>60); GFR (African American) 48 ML/MIN (>60)
[2019-11-24 06:39] LABS: Albumin Level 2.6 g/dl (3.5-5.0); Albumin/Globulin Ratio 0.9 (1.1-1.8); Anion Gap 11.9 mEq/L (5-15); Carbon Dioxide 20 mmol/L (22.0-30.0); Glucose 158 mg/dl (74-100); Total Protein,Serum 5.6 g/dl (6.3-8.2)
[2019-11-24 06:42] LABS: Calcium 12.1 mg/dl (8.4-10.2); Sodium 152 mmol/L (136-145)
[2019-11-24 08:00] VITALS: BP 130/80; PULSE 82; RESP 20; TEMP 36.7; O2SAT 95
[2019-11-24 09:00] VITALS: O2SAT 95
--- NOTE | 2019-11-24 10:17 | HMH.ACPN2 ---
Internal Medicine - PN: Subj *Date: 11/24/19 *Time: 08:30 Interval history: increase work of breathing, nonresponsive Exam Vital signs and Labs for Last 24 Hours: Temp Pulse Resp BP Pulse Ox 98.1 F 82 20 130/80 95 11/24/19 08:00 11/24/19 08:00 11/24/19 08:00 11/24/19 08:00 11/24/19 08:00 Laboratory Results - last 24 hr 11/23/19 11:48: POC Glucose 137 H 11/23/19 17:00: POC Glucose 131 H 11/24/19 05:20: WBC 6.8, RBC 4.82, Hgb 11.6 L, Hct 39.2 L, MCV 81.3, MCH 24.2 L, MCHC 29.7 L, RDW 21.1 H, Plt Count 53 L, MPV 8.8, Neut % (Auto) 69.5, Lymph % (Auto) 23.5, [place] % (Auto) 6.0, Eos % (Auto) 0.4, Baso % (Auto) 0.6, Neut # (Auto) 4.7, Lymph # (Auto) 1.6, [place] # (Auto) 0.4, Eos # (Auto) 0.0, Baso # (Auto) 0.0 11/24/19 05:20: Sodium 152 H*, Potassium 3.9, Chloride 124 H, Carbon Dioxide 20 L, Anion Gap 11.9, BUN 55 H, Creatinine 1.70 H, Estimated Creat Clear 37, Estimated GFR 40 L, Est GFR ( Amer) 48 L, Glucose 158 H, Calcium 12.1 H, Total Bilirubin 1.8 H, AST 90 H, ALT 43, Alkaline Phosphatase 315 H, Total Protein 5.6 L, Albumin 2.6 L, Globulin 3.0, Albumin/Globulin Ratio 0.9 L 11/24/19 05:20: Ammonia < 9 L I & O for Last 24 hours: Intake & Output 11/21/19 11/22/19 11/23/19 11/24/19 11:59 11:59 11:59 11:59 Intake Total 2716 / 2716 1779 / 1779 1807 / 1807 1147 / 1147 Output Total 575 / 575 621 / 621 575 / 575 650 / 650 Balance 2141 / 2141 1158 / 1158 1232 / 1232 497 / 497 Weight 144 lb 2 oz 143 lb 1 oz 142 lb 12.165 oz 145 lb 7 oz Microbiology Reports for the Last 24 Hours: Microbiology 11/22/19 09:17 Urine,Catheterized Urine Culture - Final NO GROWTH AFTER 48 HOURS 11/18/19 13:50 Blood Blood Culture - Final NO GROWTH AFTER 5 DAYS 11/18/19 13:50 Blood Blood Culture - Final NO GROWTH AFTER 5 DAYS - Constitutional mild distress Comments: unresponsive - *Routine HEENT Exam Head: Present: normocephalic ENT: Present: mucous membranes moist - *Routine Neck Exam Present: supple. Absent: lymphadenopathy - *Routine Respiratory Exam Present: decreased breath sounds, CTA bilaterally - *Routine Cardiovascular Exam Present: RRR - *Routine Abdominal Exam Present: soft, normoactive bowel sounds, distended. Absent: tenderness - *Routine Extremities Exam Present: normal capillary refill - *Routine Skin Exam Present: warm. 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 Diabetes mellitus complication status: with other specified complication Qualified Code(s): E11.69 - Type 2 diabetes mellitus with other specified complication Category: Medical Code(s): E11.9 - Type 2 diabetes mellitus without complications (3) Hypercalcemia Status: Acute Category: Medical Code(s): E83.52 - Hypercalcemia (4) Thrombocytopenia Status: Acute Category: Medical Code(s): D69.6 - Thrombocytopenia, unspecified (5) Renal insufficiency Status: Acute Category: Medical Code(s): N28.9 - Disorder of kidney and ureter, unspecified (6) Ascites Status: Acute Qualifiers: Ascites type: other type Qualified Code(s): R18.8 - Other ascites Category: Medical Code(s): R18.8 - Other ascites (7) Splenomegaly Status: Acute Category: Medical Code(s): R16.1 - Splenomegaly, not elsewhere classified (8) Cirrhosis Status: Acute Qualifiers: Hepatic cirrhosis type: unspecified hepatic cirrhosis Ascites presence: with ascites Qualified Code(s): K74.60 - Unspecified cirrhosis of liver; R18.8 - Other ascit
--- NOTE | 2019-11-24 10:25 | SW/DCPLANNER ---
Addendum entered by Carmen Nicholson 11/28/19 10:20: This patient continue inpatient Hospice status at this time. I will follow up with Zara at Hospice to see if any updates are needed. Original Note: This patient resides at [facility] prior to [facility] admission. Patient has since been admitted to Inpatient Hospice Care at [facility]. I have notified Deepika at [place] regarding plan. I have also spoke with Zara at Hospice and she has stated that patient was admitted Inpatient at 8PM on 11/22.
--- NOTE | 2019-11-24 19:41 | PC.NURSE ---
PT HAS RESTED THIS SHIFT. HE HAS OPENED HIS EYES TWICE BUT HASN'T SAID ANYTHING. HOSPICE CAME TO SEE THE PATIENT TODAY AND ONE SON CAME TO VISIT. PT HAS TOLERATED 2L NC WELL THROUGHOUT SHIFT. EXPIRATORY AND INSPIRATORY RHONCHI WELL EXPIRATORY WHEEZES NOTED THROUGHOUT. ABDOMEN IS DISTENDED, TENDER, AND ASCITIC. NO BM THIS SHIFT. PACE INTACT W CLOUDY STACEY URINE NOTED DRAINING INTO COLLECTION BAG. NO KINKS NOTED. HYPOACTIVE BOWEL SOUNDS NOTED. MORPHINE GIVEN APPROXIMATELY Q 2 HOURS TO KEEP PT COMFORTABLE AND HELP RELAX HIS BREATHING. PT HAS BEEN TURNED Q 2 HOURS TO HELP PREVENT FURTHER SKIN BREAKDOWN. STAGE 2 NOTED TO COCCYX W DRESSING IN PLACE. CDI. BED ALARM ON TO PROMOTE SAFETY. PT HAS REMAINED AFEBRILE. VSS. BED IN LOWEST POSITION. CALL LIGHT WITHIN REACH. WILL CONTINUE TO MONITOR.
[2019-11-24 20:00] VITALS: BP 122/72; PULSE 106; RESP 18; TEMP 36.4; O2SAT 97
[2019-11-24 22:50] VITALS: RESP 16
[2019-11-25 00:16] VITALS: O2SAT 91
[2019-11-25 02:02] VITALS: RESP 14
[2019-11-25 04:14] VITALS: RESP 16
--- NOTE | 2019-11-25 04:59 | PC.NURSE ---
Q2H T/R AND ORAL CARE PERFORMED. AGONAL AND RETRACTIVE RESPIRATIONS NOTED. ASCITES NOTED WITH HYPOACTIVE BOWEL SOUNDS. FC DRAINING BROWN URINE WITH SEDIMENT NOTED.
[2019-11-25 05:00] VITALS: BMI 21.7
[2019-11-25 07:03] VITALS: RESP 16
[2019-11-25 08:00] VITALS: BP 137/90; PULSE 108; RESP 16; TEMP 36.6; O2SAT 94
--- NOTE | 2019-11-25 08:55 | HMH.ACPN2 ---
Internal Medicine - PN: Subj *Date: 11/25/19 *Time: 08:00 Interval history: no changes overnight Exam Vital signs and Labs for Last 24 Hours: Temp Pulse Resp BP Pulse Ox 97.8 F 108 H 16 137/90 94 L 11/25/19 08:00 11/25/19 08:00 11/25/19 08:00 11/25/19 08:00 11/25/19 08:00 I & O for Last 24 hours: Intake & Output 11/22/19 11/23/19 11/24/19 11/25/19 11:59 11:59 11:59 11:59 Intake Total 1779 / 1779 1807 / 1807 1147 / 1147 0 / 0 Output Total 621 / 621 575 / 575 650 / 650 600 / 600 Balance 1158 / 1158 1232 / 1232 497 / 497 -600 / -600 Weight 143 lb 1 oz 142 lb 12.165 oz 145 lb 7 oz 143 lb 5 oz Microbiology Reports for the Last 24 Hours: Microbiology 11/22/19 09:17 Urine,Catheterized Urine Culture - Final NO GROWTH AFTER 48 HOURS - Constitutional no acute distress, thin - *Routine HEENT Exam Head: Present: normocephalic Eye: Present: PERRL ENT: Present: mucous membranes moist - *Routine Neck Exam Present: supple. Absent: lymphadenopathy - *Routine Respiratory Exam Present: decreased breath sounds, CTA bilaterally - *Routine Cardiovascular Exam Present: RRR - *Routine Abdominal Exam Present: soft, normoactive bowel sounds, distended. Absent: tenderness - *Routine Extremities Exam Present: normal capillary refill. Absent: cyanosis, clubbing, edema - *Routine Skin Exam Present: warm. 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 insulin use: unspecified halfway insulin use status Diabetes mellitus complication status: with other specified complication Qualified Code(s): E11.69 - Type 2 diabetes mellitus with other specified complication Category: Medical Code(s): E11.9 - Type 2 diabetes mellitus without complications (3) Hypercalcemia Status: Acute Category: Medical Code(s): E83.52 - Hypercalcemia (4) Thrombocytopenia Status: Acute Category: Medical Code(s): D69.6 - Thrombocytopenia, unspecified (5) Renal insufficiency Status: Acute Category: Medical Code(s): N28.9 - Disorder of kidney and ureter, unspecified (6) Ascites Status: Acute Qualifiers: Ascites type: other type Qualified Code(s): R18.8 - Other ascites Category: Medical Code(s): R18.8 - Other ascites (7) Splenomegaly Status: Acute Category: Medical Code(s): R16.1 - Splenomegaly, not elsewhere classified (8) Cirrhosis Status: Acute Qualifiers: Hepatic cirrhosis type: unspecified hepatic cirrhosis Ascites presence: with ascites Qualified Code(s): K74.60 - Unspecified cirrhosis of liver; R18.8 - Other ascites Category: Medical Code(s): K74.60 - Unspecified cirrhosis of liver (9) S/P CABG (coronary artery bypass graft) Status: Acute Category: Surgical Code(s): Z95.1 - Presence of aortocoronary bypass graft (10) Cerebral atrophy Status: Acute Category: Medical Code(s): G31.9 - Degenerative disease of nervous system, unspecified (11) Dementia Status: Acute Qualifiers: Dementia type: unspecified type Dementia behavioral disturbance: without behavioral disturbance Qualified Code(s): F03.90 - Unspecified dementia without behavioral disturbance Category: Medical Code(s): F03.90 - Unspecified dementia without behavioral disturbance (12) COVID-19 virus IgM antibody detected Status: Acute Category: Medical Code(s): Z01.84 - Encounter for antibody response examination (13) COVID-19 virus IgG antibody detected Status: Acute Category: Medical Code(s): Z01.84 - Encounter for antibody response examination (14) Hospice care Status: Acute Category: Medica
--- NOTE | 2019-11-25 13:26 | DIET.NUTRFU ---
Pt remains NPO and is now in hospice/comfort care. BG are moderate- ~140. Weight is stable. Decubitus stage 2. Continuing to monitor.
--- NOTE | 2019-11-25 14:05 | PC.NURSE ---
pt family agreed to turning pt. pt is now on his right side.
--- NOTE | 2019-11-25 16:15 | PC.NURSE ---
Pt resting this shift. Family allowing us to turn patient this afternoon. Pt recieved PRN pain medication for dyspnea. Pt still having agonal breathing. Family at the bedside. No other complaint at this time.
[2019-11-25 20:28] VITALS: BP 136/73; PULSE 103; RESP 16; TEMP 36.8; O2SAT 90
[2019-11-25 21:12] LABS: POC Glucose,Bedside 109 (70-110)
--- NOTE | 2019-11-26 03:36 | PC.NURSE ---
Pt resting well. PRN morphine administered per apr. Pt remains on 2L O2 NC with sats in lower 90s. Agonal breathing noted at times this shift. Lungs are diminished t/o. BS hypoactive. Ascites noted to abdomen. F/C draining to bedside with cloudy, wesley urine with sediment also noted. Teds to BLE. New IV placed in RAC. #22 SL flushes easy. Call light within reach. Safety measures in place. Will continue to monitor.
[2019-11-26 03:52] VITALS: BP 126/70; PULSE 105; RESP 16; TEMP 36.6; O2SAT 91
[2019-11-26 05:10] VITALS: BMI 21.5
[2019-11-26 06:01] LABS: POC Glucose,Bedside 97 (70-110)
[2019-11-26 08:00] VITALS: O2SAT 92
[2019-11-26 08:05] VITALS: RESP 18
--- NOTE | 2019-11-26 12:55 | HMH.ACPN2 ---
Internal Medicine - PN: Subj *Date: 11/26/19 *Time: 08:30 Interval history: no change Exam Vital signs and Labs for Last 24 Hours: Temp Pulse Resp BP Pulse Ox 97.8 F 105 H 18 126/70 92 L 11/26/19 03:52 11/26/19 03:52 11/26/19 08:05 11/26/19 03:52 11/26/19 08:00 Laboratory Results - last 24 hr 11/25/19 20:16: POC Glucose 109 11/26/19 05:28: POC Glucose 97 I & O for Last 24 hours: Intake & Output 11/24/19 11/25/19 11/26/19 11/27/19 11:59 11:59 11:59 11:59 Intake Total 1147 / 1147 0 / 0 0 / 0 Output Total 650 / 650 600 / 600 50 / 50 Balance 497 / 497 -600 / -600 -50 / -50 Weight 145 lb 7 oz 143 lb 5 oz 142 lb - Constitutional no acute distress, thin Comments: unresponsive - *Routine HEENT Exam Head: Present: normocephalic Eye: Present: PERRL ENT: Present: mucous membranes moist - *Routine Neck Exam Present: supple. Absent: lymphadenopathy - *Routine Respiratory Exam Present: CTA bilaterally - *Routine Cardiovascular Exam Present: RRR - *Routine Abdominal Exam Present: soft, normoactive bowel sounds, distended. Absent: tenderness - *Routine Extremities Exam Absent: cyanosis, clubbing, edema - *Routine Skin Exam Present: warm, wounds. Absent: rash - *Routine Neurological Exam Present: alert, oriented X3 - Routine Psychiatric Exam Present: normal affect Assessment and Plan (1) Acute delirium Status: Acute Category: Medical Code(s): R41.0 - Disorientation, unspecified (2) Diabetes mellitus Status: Acute Qualifiers: Diabetes mellitus type: type 2 Diabetes mellitus technician terminal and repeater insulin use: unspecified technician terminal and repeater insulin use status Diabetes mellitus complication status: with other specified complication Qualified Code(s): E11.69 - Type 2 diabetes mellitus with other specified complication Category: Medical Code(s): E11.9 - Type 2 diabetes mellitus without complications (3) Hypercalcemia Status: Acute Category: Medical Code(s): E83.52 - Hypercalcemia (4) Thrombocytopenia Status: Acute Category: Medical Code(s): D69.6 - Thrombocytopenia, unspecified (5) Renal insufficiency Status: Acute Category: Medical Code(s): N28.9 - Disorder of kidney and ureter, unspecified (6) Ascites Status: Acute Qualifiers: Ascites type: other type Qualified Code(s): R18.8 - Other ascites Category: Medical Code(s): R18.8 - Other ascites (7) Splenomegaly Status: Acute Category: Medical Code(s): R16.1 - Splenomegaly, not elsewhere classified (8) Cirrhosis Status: Acute Qualifiers: Hepatic cirrhosis type: unspecified hepatic cirrhosis Ascites presence: with ascites Qualified Code(s): K74.60 - Unspecified cirrhosis of liver; R18.8 - Other ascites Category: Medical Code(s): K74.60 - Unspecified cirrhosis of liver (9) S/P CABG (coronary artery bypass graft) Status: Acute Category: Surgical Code(s): Z95.1 - Presence of aortocoronary bypass graft (10) Cerebral atrophy Status: Acute Category: Medical Code(s): G31.9 - Degenerative disease of nervous system, unspecified (11) Dementia Status: Acute Qualifiers: Dementia type: unspecified type Dementia behavioral disturbance: without behavioral disturbance Qualified Code(s): F03.90 - Unspecified dementia without behavioral disturbance Category: Medical Code(s): F03.90 - Unspecified dementia without behavioral disturbance (12) COVID-19 virus IgM antibody detected Status: Acute Category: Medical Code(s): Z01.84 - Encounter for antibody response examination (13) COVID-19 virus IgG antibody detected Status: Acute Category: Medical Code(s): Z01.84 - Encounter for antibody response examination (14) Hospice care Status: Acute Category: Medical Code(s): Z51.5 - Encounter for palliative care (15) Need for comfort care Status: Acute Category: Medical (16) Hepatorenal syndrome Status: Acute
--- NOTE | 2019-11-26 13:46 | PC.NURSE ---
N REFUSED 1100 FSBS, HE STATED THAT HIS FATHER WAS FINALLY RESTING COMFORTABLY AND HE DID NOT WANT TO DISTURB HIM. PT IS CURRENTLY HOSPICE/COMFORT MEASURES. NO S/S OF HYPOGLYCEMIA OR DISTRESS NOTED. WILL CONTINUE TO MONITOR
--- NOTE | 2019-11-26 17:44 | PC.NURSE ---
PT IS LETHARGIC AND HAS SLEPT ENTIRE SHIFT. PT MOANS WITH PAIN, UNABLE TO FOLLOW DIRECTIONS. PERRLA. PAIN MEDS ADMINISTERED ONCE THIS SHIFT. PT APPEARS COMFORTABLE AND RESPIRATIONS ARE UNLABORED. LUNGS ARE CTA. ABDOMEN IS DISTENDED AND NON-TENDER. NO BM THIS SHIFT. PACE CATHETER IS SECURE, PATENT, AND DRAINING CLOUDY STACEY URINE WITH SEDIMENT. FAMILY AT BEDSIDE REFUSED 1100 AND 1600 FSBS D/T NOT WANTING TO DISTURB PT. HEART RATE AND RHYTHM IS REGULAR. NO DISTRESS NOTED. VSS. SAFETY MEASURES IN PLACE, WILL CONTINUE TO MONITOR. HOSPICE NURSE CALLED THIS AM AND UPDATE GIVEN
[2019-11-26 18:04] VITALS: O2SAT 93
[2019-11-26 20:00] VITALS: BP 106/57; PULSE 76; RESP 18; TEMP 36.8; O2SAT 93
--- NOTE | 2019-11-26 20:42 | PC.NURSE ---
Levsin obtained from [facility], however while trying to administer medication, pt would not open mouth. Medication wasted.
--- NOTE | 2019-11-27 03:59 | PC.NURSE ---
No acute changes since prior assessment. Pt continues to have periods of tachpnea. Respirations are becoming more wet. Rhonchi noted t/o anterior lung lucio. Pt remains on 2L O2 NC. Attempted to administer Levsin earlier in shift to help dry secretions but was unsuccessful. Morphine administered for pain. BS hypoactive in all quads. Ascites noted to abdomen. Medication administered per apr. FSBS not obtained per family request. F/C draining to bedside with cloudy, dark wesley urine. Will continue to monitor.
[2019-11-27 04:00] VITALS: BP 111/44; PULSE 63; RESP 21; TEMP 36.9; O2SAT 96
[2019-11-27 05:00] VITALS: BMI 21.4
[2019-11-27 08:14] VITALS: BP 108/72; PULSE 114; RESP 20; TEMP 36.8; O2SAT 93
--- NOTE | 2019-11-27 08:54 | HMH.ACPN2 ---
Internal Medicine - PN: Subj *Date: 11/27/19 *Time: 08:56 Interval history: somoulent but moans with tactile stimuli Exam Vital signs and Labs for Last 24 Hours: Temp Pulse Resp BP Pulse Ox 98.2 F 114 H 20 108/72 L 93 L 11/27/19 08:14 11/27/19 08:14 11/27/19 08:14 11/27/19 08:14 11/27/19 08:14 I & O for Last 24 hours: Intake & Output 11/24/19 11/25/19 11/26/19 11/27/19 11:59 11:59 11:59 11:59 Intake Total 1147 / 1147 0 / 0 0 / 0 0 / 0 Output Total 650 / 650 600 / 600 50 / 50 610 / 610 Balance 497 / 497 -600 / -600 -50 / -50 -610 / -610 Weight 145 lb 7 oz 143 lb 5 oz 142 lb 141 lb 1 oz - Constitutional no acute distress - *Routine HEENT Exam Head: Present: normocephalic Eye: Present: EOMI, PERRL ENT: Present: mucous membranes dry - *Routine Neck Exam Absent: JVD - *Routine Respiratory Exam Present: decreased breath sounds - *Routine Cardiovascular Exam Present: RRR - *Routine Abdominal Exam Present: soft - *Routine Extremities Exam Present: pulses intact - *Routine Skin Exam Comments: has coccyx decubitus - *Routine Neurological Exam Present: altered mental status - Routine Psychiatric Exam Present: unable to assess Assessment and Plan (1) Acute delirium Status: Acute Category: Medical Code(s): R41.0 - Disorientation, unspecified (2) Diabetes mellitus Status: Acute Qualifiers: Diabetes mellitus type: type 2 Diabetes mellitus jail insulin use: unspecified jail insulin use status Diabetes mellitus complication status: with other specified complication Qualified Code(s): E11.69 - Type 2 diabetes mellitus with other specified complication Category: Medical Code(s): E11.9 - Type 2 diabetes mellitus without complications (3) Hypercalcemia Status: Acute Category: Medical Code(s): E83.52 - Hypercalcemia (4) Thrombocytopenia Status: Acute Category: Medical Code(s): D69.6 - Thrombocytopenia, unspecified (5) Renal insufficiency Status: Acute Category: Medical Code(s): N28.9 - Disorder of kidney and ureter, unspecified (6) Ascites Status: Acute Qualifiers: Ascites type: other type Qualified Code(s): R18.8 - Other ascites Category: Medical Code(s): R18.8 - Other ascites (7) Splenomegaly Status: Acute Category: Medical Code(s): R16.1 - Splenomegaly, not elsewhere classified (8) Cirrhosis Status: Acute Qualifiers: Hepatic cirrhosis type: unspecified hepatic cirrhosis Ascites presence: with ascites Qualified Code(s): K74.60 - Unspecified cirrhosis of liver; R18.8 - Other ascites Category: Medical Code(s): K74.60 - Unspecified cirrhosis of liver (9) S/P CABG (coronary artery bypass graft) Status: Acute Category: Surgical Code(s): Z95.1 - Presence of aortocoronary bypass graft (10) Cerebral atrophy Status: Acute Category: Medical Code(s): G31.9 - Degenerative disease of nervous system, unspecified (11) Dementia Status: Acute Qualifiers: Dementia type: unspecified type Dementia behavioral disturbance: without behavioral disturbance Qualified Code(s): F03.90 - Unspecified dementia without behavioral disturbance Category: Medical Code(s): F03.90 - Unspecified dementia without behavioral disturbance (12) COVID-19 virus IgM antibody detected Status: Acute Category: Medical Code(s): Z01.84 - Encounter for antibody response examination (13) COVID-19 virus IgG antibody detected Status: Acute Category: Medical Code(s): Z01.84 - Encounter for antibody response examination (14) Hospice care Status: Acute Category: Medical Code(s): Z51.5 - Encounter for palliative care (15) Need for comfort care Status: Acute Category: Medical (16) Hepatorenal syndrome Status: Acute Category: Medical Code(s): K76.7 - Hepatorenal syndrome (17) Decubitus skin ulcer Status: Acute Qualifiers: Pressure injury locatio
--- NOTE | 2019-11-27 13:07 | PC.NURSE ---
FAMILY NOTIFIED THIS REEL REPAIRER THAT IF THE PT IS RESTING WELL, THEY WOULD PREFER TO MINIMIZE CARE AND REFUSED TURNING AT 0800 AND 1200, ALONG WITH REFUSAL OF BATH. ORAL CARE PROVIDED Q2
--- NOTE | 2019-11-27 16:40 | PC.NURSE ---
FAMILY HAS PREVIOUSLY STATED THAT THEY DID NOT WANT FSBS TO BE CONTINUED. PT DOES NOT APPEAR TO BE IN ANY DISTRESS, NO S/S OF HYPER/HYPOGLYCEMIA NOTED, WILL CONTINUE TO MONITOR.
[2019-11-27 18:20] VITALS: O2SAT 92
--- NOTE | 2019-11-27 19:48 | PC.NURSE ---
PT HAS RESTED COMFORTABLY ALL SHIFT, FAMILY HAS REQUESTED NO Q2 TURNS OR FSBS, DSG IN PLACE ON BUTTOCKS, C/D/I. HAS NOT HAS ANYTHING BY MOUTH THIS SHIFT, 2LNC AT THIS TIME, MORPHINE PRN GIVEN AT FAMILY REQUEST, PT APPEARS COMFORTABLE, NO RESPIRATORY DISTRESS NOTED, FAMILY AT BEDSIDE, COMFORT MEASURES IN PLACE,
[2019-11-27 20:00] VITALS: BP 100/56; PULSE 114; RESP 16; TEMP 37.6; O2SAT 90
--- NOTE | 2019-11-27 23:24 | PC.NURSE ---
Family has requested for pt not to be disturbed and turned every 2 hours. Family refused FS GLU checks. Family states they would like a bath to be given this shift. Bath given in bed per staff, pt tolerated well. Cath care provided by staff as well. Oral care provided after bath, pt tolerated well. No suctioning needed at this time. Bilateral lungs noted clear t/o. Pt tolerating 2 lnc well with no respiratory distress noted. Pt remains nonverbal with little movement at this time. NPO. Administered Morphine at this time due to facial grimacing noted. Will continue to monitor and reassess accordingly.
[2019-11-28] VITALS (8 sets, daily range): BP systolic 150–163; BP diastolic 75–85; PULSE 124–126; RESP 16–24; TEMP 37–39.6; O2SAT 81–95; BMI 21.1
--- NOTE | 2019-11-28 03:00 | PC.NURSE ---
Pt noted resting comfortably t/o shift. Bilateral lungs noted clear t/o upon auscultation. Tolerated 2 lnc well with humidification. RR noted even and unlabored. Suction on standby but has not been needed thus far t/o shift. Pt unable to answer questions, but does quietly moan with stimuli such as oral care. Remains NPO. VSS. Comfort care measures in place. Call light within reach. Will continue to monitor.
--- NOTE | 2019-11-28 08:31 | HMH.ACPN2 ---
Internal Medicine - PN: Subj *Date: 11/28/19 *Time: 08:31 Interval history: no changes Exam Vital signs and Labs for Last 24 Hours: Temp Pulse Resp BP Pulse Ox 99.6 F 114 H 24 100/56 L 90 L 11/27/19 20:00 11/27/19 20:00 11/28/19 05:10 11/27/19 20:00 11/27/19 20:00 I & O for Last 24 hours: Intake & Output 11/25/19 11/26/19 11/27/19 11/28/19 11:59 11:59 11:59 11:59 Intake Total 0 / 0 0 / 0 0 / 0 0 / 0 Output Total 600 / 600 50 / 50 610 / 610 675 / 675 Balance -600 / -600 -50 / -50 -610 / -610 -675 / -675 Weight 143 lb 5 oz 142 lb 141 lb 1 oz 139 lb 6 oz - Constitutional no acute distress, thin, chronically ill appearing - *Routine HEENT Exam Head: Present: normocephalic Eye: Present: PERRL ENT: Present: mucous membranes moist - *Routine Neck Exam Present: supple. Absent: lymphadenopathy - *Routine Respiratory Exam Present: decreased breath sounds, CTA bilaterally - *Routine Cardiovascular Exam Present: RRR - *Routine Abdominal Exam Present: soft, normoactive bowel sounds, distended. Absent: tenderness - *Routine Extremities Exam Present: normal capillary refill. Absent: cyanosis, clubbing, edema - *Routine Skin Exam Present: warm, wounds. Absent: rash Comments: stage [address] - *Routine Neurological Exam unresponsive - Routine Psychiatric Exam Present: unable to assess Assessment and Plan (1) Acute delirium Status: Acute Category: Medical Code(s): R41.0 - Disorientation, unspecified (2) Diabetes mellitus Status: Acute Qualifiers: Diabetes mellitus type: type 2 Diabetes mellitus penitentiary insulin use: unspecified roasterman insulin use status Diabetes mellitus complication status: with other specified complication Qualified Code(s): E11.69 - Type 2 diabetes mellitus with other specified complication Category: Medical Code(s): E11.9 - Type 2 diabetes mellitus without complications (3) Hypercalcemia Status: Acute Category: Medical Code(s): E83.52 - Hypercalcemia (4) Thrombocytopenia Status: Acute Category: Medical Code(s): D69.6 - Thrombocytopenia, unspecified (5) Renal insufficiency Status: Acute Category: Medical Code(s): N28.9 - Disorder of kidney and ureter, unspecified (6) Ascites Status: Acute Qualifiers: Ascites type: other type Qualified Code(s): R18.8 - Other ascites Category: Medical Code(s): R18.8 - Other ascites (7) Splenomegaly Status: Acute Category: Medical Code(s): R16.1 - Splenomegaly, not elsewhere classified (8) Cirrhosis Status: Acute Qualifiers: Hepatic cirrhosis type: unspecified hepatic cirrhosis Ascites presence: with ascites Qualified Code(s): K74.60 - Unspecified cirrhosis of liver; R18.8 - Other ascites Category: Medical Code(s): K74.60 - Unspecified cirrhosis of liver (9) S/P CABG (coronary artery bypass graft) Status: Acute Category: Surgical Code(s): Z95.1 - Presence of aortocoronary bypass graft (10) Cerebral atrophy Status: Acute Category: Medical Code(s): G31.9 - Degenerative disease of nervous system, unspecified (11) Dementia Status: Acute Qualifiers: Dementia type: unspecified type Dementia behavioral disturbance: without behavioral disturbance Qualified Code(s): F03.90 - Unspecified dementia without behavioral disturbance Category: Medical Code(s): F03.90 - Unspecified dementia without behavioral disturbance (12) COVID-19 virus IgM antibody detected Status: Acute Category: Medical Code(s): Z01.84 - Encounter for antibody response examination (13) COVID-19 virus IgG antibody detected Status: Acute Category: Medical Code(s): Z01.84 - Encounter for antibody response examination (14) Hospice care Status: Acute Category: Medical Code(s): Z51.5 - Encounter for palliative care (15) Need for comfort care Status: Acute Category: Medical (16) Hepat
--- NOTE | 2019-11-28 13:23 | DIET.NUTRFU ---
Pt in comfort care, remains NPO. Total weight loss t/o stay- 6# / 4% body weight.
--- NOTE | 2019-11-28 15:37 | PC.NURSE ---
PT HAS TOLERATED 2L NC WELL THROUGHOUT SHIFT. RESPIRATIONS REGULAR AND UNLABORED. INSPIRATORY AND EXPIRATORY RHONCHI NOTED THROUGHOUT LUNGS. PT HAS RESTED WELL THROUGHOUT SHIFT. PT HAS RECEIVED MORPHINE 2MG IV Q 2 HOURS TO HELP WITH PAIN. ON REASSESSMENT, PT WAS RESTING BETTER. PACE CATHETER INTACT W DARK STACEY URINE NOTED. NO KINKS NOTED. FAMILY HAS REFUSED FOR PT TO BE TURNED OR HAVE TEDS ON. FAMILY CURRENTLY AT BEDSIDE NOW. ABDOMEN IS ASCITIC, LARGE, AND ROUND W HYPOACTIVE BOWEL SOUNDS NOTED. PT HAS BEEN NONVERBAL THIS SHIFT AND NOT ALERT TO PAIN. HE HAS MOANED A FEW TIMES THUS FAR. HOSPICE NURSE CAME IN TO SEE HIM. SHE STATES NO CHARGES ARE TO BE MADE. SHE IS GOING TO CONTACT DR BRO IN REGARDS TO ORDERING ROXANOL IN CASE THE IV GOES BAD SO; WE DON'T HAVE TO STICK THE PATIENT AGAIN. COMFORT MEASURES HAVE BEEN IN PLACE. NO EDEMA NOTED. PT IS RESTING IN BED AT THIS TIME. CALL LIGHT WITHIN REACH. BED ALARM ON TO PROMOTE SAFETY. VSS. BED IN LOWEST POSITION. WILL CONTINUE TO MONITOR.
--- NOTE | 2019-11-28 17:50 | PC.NURSE ---
HOSPICE CALLED AND SAID TO ORDER ROXANOL 15MG Q 4 HOURS PO WELL ROXANOL 15MG PO Q 2 HOURS PRN FOR PAIN. IT IS TO BE GIVEN ONCE IV GOES BAD. THEY DON'T WANT TO CHANGE THE REGIMEN BECAUSE THEY FEEL IT IS WORKING GREAT FOR THE PATIENT AND KEEPING HIM COMFORTABLE AT THIS TIME. ORDER FAXED TO PHARMACY.
--- NOTE | 2019-11-28 19:14 | PC.NURSE ---
report given to carlton
--- NOTE | 2019-11-28 22:34 | PC.NURSE ---
active cooling applied with ice packs to underarms and groin, room temp decreased, fan added to room.
--- NOTE | 2019-11-28 23:51 | PC.NURSE ---
active cooling measures remain in place, ice packs refilled and reapplied.
[2019-11-29] VITALS (9 sets, daily range): BP systolic 93–108; BP diastolic 59–64; PULSE 95–118; RESP 16–31; TEMP 35.9–37.8; O2SAT 71–90; BMI 20.9
--- NOTE | 2019-11-29 05:44 | PC.NURSE ---
Pt is intermittently responsive to painful stimuli. After temp spike of 103.2 and having cooling interventions initiated, pt now has rectal temp 96.7. Pt has fewer episodes of apnea, but breathing is much more shallow. Pt's skin color has become more avalos with mucous membranes very pale. Bilateral hands have 2+ pitting edema, thighs 3+pitting edema noted. Pt exhibits no nonverbal s/sx of pain/distress at this time.
--- NOTE | 2019-11-29 08:39 | HMH.ACPN2 ---
Internal Medicine - PN: Subj *Date: 11/29/19 *Time: 08:43 Interval history: Male patient resting in bed quietly with eyes closed, unresponsive to verbal stimuli, but he will moan with tactile stimulation. Remains under hospice care for DNR status Exam Vital signs and Labs for Last 24 Hours: Temp Pulse Resp BP Pulse Ox 98.4 F 95 H 19 93/59 L 90 L 11/29/19 07:51 11/29/19 07:51 11/29/19 07:51 11/29/19 07:51 11/29/19 07:51 I & O for Last 24 hours: Intake & Output 11/26/19 11/27/19 11/28/19 11/29/19 23:59 23:59 23:59 23:59 Intake Total 0 / 0 0 / 0 0 / 0 0 / 0 Output Total 550 / 550 610 / 610 550 / 550 100 / 100 Balance -550 / -550 -610 / -610 -550 / -550 -100 / -100 Weight 142 lb 141 lb 1 oz 139 lb 6 oz 138 lb 6 oz - Constitutional no acute distress, cachectic, chronically ill appearing - *Routine HEENT Exam Head: Present: normocephalic ENT: Present: mucous membranes moist - *Routine Neck Exam Present: trachea midline. Absent: tracheal deviation - *Routine Respiratory Exam Present: CTA bilaterally, diminished air movement. Absent: accessory muscle use - *Routine Cardiovascular Exam Present: RRR - *Routine Abdominal Exam Present: soft, normoactive bowel sounds. Absent: firm - *Routine Extremities Exam Present: pulses intact. Absent: edema - *Routine Skin Exam Present: wounds Comments: Stage II wound to coccyx with dressing intact - *Routine Neurological Exam Present: altered mental status. Absent: alert - Routine Psychiatric Exam Present: unable to assess Assessment and Plan (1) Acute delirium Status: Acute Category: Medical Code(s): R41.0 - Disorientation, unspecified (2) Diabetes mellitus Status: Acute Qualifiers: Diabetes mellitus type: type 2 Diabetes mellitus copy coordinator insulin use: unspecified copy coordinator insulin use status Diabetes mellitus complication status: with other specified complication Qualified Code(s): E11.69 - Type 2 diabetes mellitus with other specified complication Category: Medical Code(s): E11.9 - Type 2 diabetes mellitus without complications (3) Hypercalcemia Status: Acute Category: Medical Code(s): E83.52 - Hypercalcemia (4) Thrombocytopenia Status: Acute Category: Medical Code(s): D69.6 - Thrombocytopenia, unspecified (5) Renal insufficiency Status: Acute Category: Medical Code(s): N28.9 - Disorder of kidney and ureter, unspecified (6) Ascites Status: Acute Qualifiers: Ascites type: other type Qualified Code(s): R18.8 - Other ascites Category: Medical Code(s): R18.8 - Other ascites (7) Splenomegaly Status: Acute Category: Medical Code(s): R16.1 - Splenomegaly, not elsewhere classified (8) Cirrhosis Status: Acute Qualifiers: Hepatic cirrhosis type: unspecified hepatic cirrhosis Ascites presence: with ascites Qualified Code(s): K74.60 - Unspecified cirrhosis of liver; R18.8 - Other ascites Category: Medical Code(s): K74.60 - Unspecified cirrhosis of liver (9) S/P CABG (coronary artery bypass graft) Status: Acute Category: Surgical Code(s): Z95.1 - Presence of aortocoronary bypass graft (10) Cerebral atrophy Status: Acute Category: Medical Code(s): G31.9 - Degenerative disease of nervous system, unspecified (11) Dementia Status: Acute Qualifiers: Dementia type: unspecified type Dementia behavioral disturbance: without behavioral disturbance Qualified Code(s): F03.90 - Unspecified dementia without behavioral disturbance Category: Medical Code(s): F03.90 - Unspecified dementia without behavioral disturbance (12) COVID-19 virus IgM antibody detected Status: Acute Category: Medical Code(s): Z01.84 - Encounter for antibody response examination (13) COVID-19 virus IgG antibody detected Status: Acute Category: Medical Code(s): Z01.84 - Encounter for antibody response examination (14) Hospice care Stat
--- NOTE | 2019-11-29 12:21 | PC.NURSE ---
Pt resting comfortably at this time. VS this am stable. Family member has been at bedside. PRN morphine given per mar for comfort shallow RR. Teds in place. Did open eyes x once this am. Has been non verbal, will respond to painful stimuli.
--- NOTE | 2019-11-29 16:53 | PC.NURSE ---
Assumed care of this patient from Jasmine Chaves RN @ [phone].
[2019-11-30 05:00] VITALS: BMI 20.5
--- NOTE | 2019-11-30 06:29 | PC.NURSE ---
shift summary, pt O2 sats decreased and respirations increased, family aware, family came in to sit with patient, pt family made it clear that they want pt made comfortable, pt respirations decreased when family at bedside, catheter still in place draining cloudy wesley urine with sediment
[2019-11-30 07:00] VITALS: BP 85/51; PULSE 125; TEMP 37.5; O2SAT 71
[2019-11-30 08:30] VITALS: PULSE 125; RESP 32; O2SAT 71
--- NOTE | 2019-11-30 08:32 | HMH.ACPN2 ---
Internal Medicine - PN: Subj *Date: 11/30/19 *Time: 08:32 Interval history: 69-year-old male patient resting quietly in bed with son at bedside. Patient with no apparent distress, Roxanol is now scheduled and as needed. Son denies any concerns/needs at present. Patient remains DNR status under hospice care Exam Vital signs and Labs for Last 24 Hours: Temp Pulse Resp BP Pulse Ox 99.5 F 125 H 31 H 85/51 L 71 L 11/30/19 07:00 11/30/19 07:00 11/29/19 20:45 11/30/19 07:00 11/30/19 07:00 I & O for Last 24 hours: Intake & Output 11/27/19 11/28/19 11/29/19 11/30/19 23:59 23:59 23:59 23:59 Intake Total 0 / 0 0 / 0 0 / 0 Output Total 610 / 610 550 / 550 400 / 400 175 / 175 Balance -610 / -610 -550 / -550 -400 / -400 -175 / -175 Weight 141 lb 1 oz 139 lb 6 oz 138 lb 6 oz 135 lb 3 oz - Constitutional thin, cachectic, chronically ill appearing - *Routine HEENT Exam Head: Present: normocephalic ENT: Present: mucous membranes dry - *Routine Neck Exam Present: trachea midline. Absent: JVD, tracheal deviation - *Routine Respiratory Exam Present: diminished air movement. Absent: accessory muscle use - *Routine Cardiovascular Exam Present: RRR - *Routine Abdominal Exam Present: soft. Absent: normoactive bowel sounds - *Routine Extremities Exam Present: pulses intact. Absent: edema - *Routine Skin Exam Present: warm, wounds Comments: Stage II to coccyx with dressing intact - *Routine Neurological Exam Present: altered mental status. Absent: alert - Routine Psychiatric Exam Present: unable to assess Assessment and Plan (1) Acute delirium Status: Acute Category: Medical Code(s): R41.0 - Disorientation, unspecified (2) Diabetes mellitus Status: Acute Qualifiers: Diabetes mellitus type: type 2 Diabetes mellitus senior living insulin use: unspecified exterminator helper termite insulin use status Diabetes mellitus complication status: with other specified complication Qualified Code(s): E11.69 - Type 2 diabetes mellitus with other specified complication Category: Medical Code(s): E11.9 - Type 2 diabetes mellitus without complications (3) Hypercalcemia Status: Acute Category: Medical Code(s): E83.52 - Hypercalcemia (4) Thrombocytopenia Status: Acute Category: Medical Code(s): D69.6 - Thrombocytopenia, unspecified (5) Renal insufficiency Status: Acute Category: Medical Code(s): N28.9 - Disorder of kidney and ureter, unspecified (6) Ascites Status: Acute Qualifiers: Ascites type: other type Qualified Code(s): R18.8 - Other ascites Category: Medical Code(s): R18.8 - Other ascites (7) Splenomegaly Status: Acute Category: Medical Code(s): R16.1 - Splenomegaly, not elsewhere classified (8) Cirrhosis Status: Acute Qualifiers: Hepatic cirrhosis type: unspecified hepatic cirrhosis Ascites presence: with ascites Qualified Code(s): K74.60 - Unspecified cirrhosis of liver; R18.8 - Other ascites Category: Medical Code(s): K74.60 - Unspecified cirrhosis of liver (9) S/P CABG (coronary artery bypass graft) Status: Acute Category: Surgical Code(s): Z95.1 - Presence of aortocoronary bypass graft (10) Cerebral atrophy Status: Acute Category: Medical Code(s): G31.9 - Degenerative disease of nervous system, unspecified (11) Dementia Status: Acute Qualifiers: Dementia type: unspecified type Dementia behavioral disturbance: without behavioral disturbance Qualified Code(s): F03.90 - Unspecified dementia without behavioral disturbance Category: Medical Code(s): F03.90 - Unspecified dementia without behavioral disturbance (12) COVID-19 virus IgM antibody detected Status: Acute Category: Medical Code(s): Z01.84 - Encounter for antibody response examination (13) COVID-19 virus IgG antibody detected Status: Acute Category: Medical Code(s): Z01.84 - Encounter for antibody response examinati
--- NOTE | 2019-11-30 15:14 | SW/DCPLANNER ---
PATIENT REMAINS UNDER INPATIENT HOSPICE CARE HERE AT [facility]... FAMILY AT BEDSIDE AND STAFF CONTINUES TO OFFER COMFORT CARE ALONG WITH HOSPICE....
--- NOTE | 2019-11-30 18:58 | PC.NURSE ---
PT HAS RESTED ALL OF SHIFT AND HASN'T BEEN RESPONSIVE TO PAIN. PT HAS TOLERATED 2.5L OF NC OK. PT HAS BEEN KEPT COMFORTBALE POSSIBLE. FAMILY CONTINUES TO REFUSE PT TO BE TURNED AND WEAR TEDS. RHONCHI NOTED THROUGHOUT LUNGS. CLOUDY STACEY URINE NOTED IN PACE CATHETER. NO KINKS NOTED. NO BM THIS SHIFT. ASCITIC, ROUND ABDOMEN NOTED. HYPOACTIVE BOWEL SOUNDS HEARD IN ALL 4 QUADRANTS. HOSPICE NURSE CAME TO SEE PT TODAY WELL MARKET SURVEY REPRESENTATIVE, SISTER, AND 1 SON. PT HAS RECEIVED MORPHINE Q 4 HOURS FOR PAIN AND COMFORT. ON REASSESSMENT, PT SEEMED TO BE RESTING BETTER. PT IS STARTING TO MOTTLE. MOTTLING NOTED TO LLE. PT IS CURRENTLY LYING IN BED. BED IN LOWEST POSITION. WILL CONTINUE TO MONITOR.
--- NOTE | 2019-11-30 19:17 | PC.NURSE ---
report given to rosa
[2019-11-30 20:00] VITALS: BP 75/46; PULSE 123; RESP 30; TEMP 39.6; O2SAT 80
[2019-11-30 21:53] VITALS: RESP 14
--- NOTE | 2019-11-30 22:08 | PC.NURSE ---
spoke with pt. son elian martinez regarding pt. temperature and family is okay with tx high temperatures with tylenol per apr. pt. son does not want pt. to be turned/repositioned unnecessarily. updated family of last set of vital signs at this time.
[2019-12-01 00:59] VITALS: RESP 26
--- NOTE | 2019-12-01 04:04 | PC.NURSE ---
Kept Pt comfortable throughout the shift with morphine. Pts respirations have been 14-28 throughout shift, BLT lungs diminished, Pts Lt foot mottled and cold, Rt foot remains warm, +3 Pitting Edema present in BLT Feet, Ankles, and hands, Family wants Pt to remain comfort measures only. I/V saline locked, Catheter free of leaks, Urine wesley in color with sediment
[2019-12-01 05:16] VITALS: RESP 20
--- NOTE | 2019-12-01 05:34 | PC.NURSE ---
Bed scale was not working and unable to obtain weight. Patient's nurse notified.
--- NOTE | 2019-12-01 08:34 | HMH.ACPN2 ---
Internal Medicine - PN: Subj *Date: 12/01/19 *Time: 08:34 Interval history: family at bedside, requesting comfort care only Exam Vital signs and Labs for Last 24 Hours: Temp Pulse Resp BP Pulse Ox 103.2 F H 123 H 20 75/46 L 80 L 11/30/19 20:00 11/30/19 20:00 12/01/19 05:16 11/30/19 20:00 11/30/19 20:00 I & O for Last 24 hours: Intake & Output 11/28/19 11/29/19 11/30/19 12/01/19 11:59 11:59 11:59 11:59 Intake Total 0 / 0 0 / 0 0 / 0 0 / 0 Output Total 675 / 675 475 / 475 475 / 475 200 / 200 Balance -675 / -675 -475 / -475 -475 / -475 -200 / -200 Weight 139 lb 6 oz 138 lb 6 oz 135 lb 3 oz 0 oz - Constitutional no acute distress, chronically ill appearing - *Routine HEENT Exam Head: Present: normocephalic ENT: Present: mucous membranes moist - *Routine Neck Exam Present: supple. Absent: lymphadenopathy - *Routine Respiratory Exam Present: CTA bilaterally - *Routine Cardiovascular Exam Present: RRR - *Routine Abdominal Exam Present: soft, normoactive bowel sounds, distended. Absent: tenderness - *Routine Exam Comments: blank draining at bedside with sediment - *Routine Extremities Exam Present: normal capillary refill. Absent: cyanosis, clubbing, edema - *Routine Skin Exam Present: warm. Absent: rash - *Routine Neurological Exam unresponsive Assessment and Plan (1) Acute delirium Status: Acute Category: Medical Code(s): R41.0 - Disorientation, unspecified (2) Diabetes mellitus Status: Acute Qualifiers: Diabetes mellitus type: type 2 Diabetes mellitus readers' advisory service librarian insulin use: unspecified readers' advisory service librarian insulin use status Diabetes mellitus complication status: with other specified complication Qualified Code(s): E11.69 - Type 2 diabetes mellitus with other specified complication Category: Medical Code(s): E11.9 - Type 2 diabetes mellitus without complications (3) Hypercalcemia Status: Acute Category: Medical Code(s): E83.52 - Hypercalcemia (4) Thrombocytopenia Status: Acute Category: Medical Code(s): D69.6 - Thrombocytopenia, unspecified (5) Renal insufficiency Status: Acute Category: Medical Code(s): N28.9 - Disorder of kidney and ureter, unspecified (6) Ascites Status: Acute Qualifiers: Ascites type: other type Qualified Code(s): R18.8 - Other ascites Category: Medical Code(s): R18.8 - Other ascites (7) Splenomegaly Status: Acute Category: Medical Code(s): R16.1 - Splenomegaly, not elsewhere classified (8) Cirrhosis Status: Acute Qualifiers: Hepatic cirrhosis type: unspecified hepatic cirrhosis Ascites presence: with ascites Qualified Code(s): K74.60 - Unspecified cirrhosis of liver; R18.8 - Other ascites Category: Medical Code(s): K74.60 - Unspecified cirrhosis of liver (9) S/P CABG (coronary artery bypass graft) Status: Acute Category: Surgical Code(s): Z95.1 - Presence of aortocoronary bypass graft (10) Cerebral atrophy Status: Acute Category: Medical Code(s): G31.9 - Degenerative disease of nervous system, unspecified (11) Dementia Status: Acute Qualifiers: Dementia type: unspecified type Dementia behavioral disturbance: without behavioral disturbance Qualified Code(s): F03.90 - Unspecified dementia without behavioral disturbance Category: Medical Code(s): F03.90 - Unspecified dementia without behavioral disturbance (12) COVID-19 virus IgM antibody detected Status: Acute Category: Medical Code(s): Z01.84 - Encounter for antibody response examination (13) COVID-19 virus IgG antibody detected Status: Acute Category: Medical Code(s): Z01.84 - Encounter for antibody response examination (14) Hospice care Status: Acute Category: Medical Code(s): Z51.5 - Encounter for palliative care (15) Need for comfort care Status: Acute Category: Medical (16) Hepatorenal syndrome Status: Acute Category: Medical
--- NOTE | 2019-12-01 10:39 | SW/DCPLANNER ---
This patient continue inpatient Hospice at this time. I have spoke with Zara from Hospice and she has stated a nurse would be here today to see this patient. Zara has no further needs from at this time. I will continue to follow up with Hospice.
--- NOTE | 2019-12-01 10:44 | PC.NURSE ---
resting easy at this time. son remains at bedside.
--- NOTE | 2019-12-01 12:13 | PC.NURSE ---
[address] [facility] floor sweeper here at this time.
[2019-12-01 13:45] VITALS: RESP 24
--- NOTE | 2019-12-01 16:40 | PC.NURSE ---
Kept patient comfortable this shift with Roxanol. Respirations have been 22-26 throughout shift, lung sounds are diminished with some crackles noted. Leftt foot mottled and cold, Rightt foot remains warm, +2 Pitting Edema present in BLT Feet, Ankles, and hands, Family desires for patient to remain comfort measures only. Requesting no vital signs and turning this shift. I/V saline locked, blank catheter draining and patent, Urine is wesley in color with wesley colored sediment. urine output this shift 150ml. Family taking shifts and remain at bedside at this time.
--- NOTE | 2019-12-01 19:11 | PC.NURSE ---
report given to alma rosa
[2019-12-01 20:00] VITALS: BP 76/38; PULSE 70; RESP 26; TEMP 35.6; O2SAT 82
--- NOTE | 2019-12-02 03:20 | P.DN_ITS ---
Pronouncement Note - Date and Time of Date of : 12/02/19 Time of : 03:10 - Additional Data Confirmation of : no pulse, no respirations, no heart sounds, pupils fixed and dilated Attending/PCP notified?: Yes Attending physician: Byron Cade MD Was code activated?: No Autopsy requested?: No trade mark examiner notified?: No Organ bank notified?: Yes Advance directives: Yes
--- NOTE | 2019-12-02 03:22 | HMH.DCSUM ---
General - General Admission date:: 11/22/19 Discharge date: 12/02/19 HPI HPI: this elderly pt was sent from f with change in mental status - -year-old male with a history of dementia and cirrhosis who presents from a [facility] with EMS for worsening altered mental status and abdominal pain. Patient is nonverbal on initial examination response to exam with grimace but is awake and will redirect to verbal cues. History from EMS demonstrates that he is normally talkative at baseline but has had acute worsening no history of fever, vomiting, or [id number] male with a history of cirrhosis and dementia who presents with worsening altered mental status and abdominal distention with tenderness on exam. Patient is hemodynamically stable and afebrile on arrival. Concern for intra-abdominal infection/acute abdomen. ET abdomen pelvis is ordered with contrast. Chest x-ray is also ordered as well as a head CT for altered mental status and infectious work-up. Laboratory data significant for thrombocytopenia and anemia. Significant coagulopathy based on INR. Occult stool is positive suggesting GI bleed. Due to history of cirrhosis and no evidence of acute hematemesis or variceal bleeding the patient was started on ceftriaxone IV and given a bolus dose of IV pantoprazole. CT of the abdomen pelvis demonstrates no acute mechanical obstruction but evidence of an ileus and moderate ascites. Patient will be admitted for decompensated cirrhosis and worsening altered mental status with a abdominal ileus. Patient was noted to be IgM and IgG plasma positive for COVID-19 and a rapid swab was ordered. Patient was admitted for further evaluation and management. Hospital Course Hospital Course: pt with limited response to therapeutic treatment for his ascites and liver failure - he progressed with renal failure and dec loc - discussed with family and pt was made hospice pt and slowly declined but was comfortable and 12/02/19 at 0310 Objective Vital signs: Temp Pulse Resp BP Pulse Ox 96.1 F L 70 26 H 76/38 L 82 L 12/01/19 20:00 12/01/19 20:00 12/01/19 20:00 12/01/19 20:00 12/01/19 20:00 cachectic - *Routine HEENT Exam Head: Present: normocephalic Eye: Present: other (fixed ). Absent: conjunctival icterus - *Routine Neck Exam Absent: JVD - *Routine Respiratory Exam Present: other (apnea ) - *Routine Cardiovascular Exam Present: other (no pulse ) - *Routine Abdominal Exam Present: distended - *Routine Extremities Exam Present: edema - *Routine Skin Exam Comments: had sacral decubitus - *Routine Neurological Exam nonresponsive - Routine Psychiatric Exam Present: unable to assess DS: Diagnosis - Discharge Diagnosis (1) Acute delirium Status: Acute (2) Diabetes mellitus Status: Acute (3) Hypercalcemia Status: Acute (4) Thrombocytopenia Status: Acute (5) Renal insufficiency Status: Acute (6) Ascites Status: Acute (7) Splenomegaly Status: Acute (8) Cirrhosis Status: Acute (9) S/P CABG (coronary artery bypass graft) Status: Acute (10) Cerebral atrophy Status: Acute (11) Dementia Status: Acute (12) COVID-19 virus IgM antibody detected Status: Acute (13) COVID-19 virus IgG antibody detected Status: Acute (14) Hospice care Status: Acute (15) Need for comfort care Status: Acute (16) Hepatorenal syndrome Status: Acute (17) Decubitus skin ulcer Status: Acute Discharge Plan - Patient Discharge Instructions ACTIVITY: Other () DIET: other () Patient Instructions: DI for Ascites, DI for Ileus, DI for Cirrhosis, DI for Gastrointestinal Bleeding, DI for Altered Mental Status, Catheter-Associated Urinary Tract Infection - Follow up Plan Disposition: Home Medications: Home Medications Medication Instructions Recorded Confirmed Type amlodipine 10 mg
--- NOTE | 2019-12-02 03:30 | HMH.DEADDC ---
Discharge Sum: Prov - Provider Primary care physician: Byron Cade MD Visit Care Team Role Provider Type Abrahan Marion MD Other Providers Staff Physician Camden Jacobo MD Emergency Provider ER Physician Byron Cade MD Admit Provider Staff Physician Attending Provider Primary Care Provider Consults: 11/21/19 08:00 GI consult [Consult to Gastroenterology] [CONS] Routine Consulting Provider: Abrahan Marion Reason For Consult: ascites/liver issues 11/23/19 11:17 Care Management Consult [Consult to Case Management] [CONS] Routine Reason For Consult: Hospice Consult. Please contact Jake at [phone] so he can be here when Hospice comes Discharge Sum: Summary - Date and Time Date of admission: 11/22/19 08:00 Date of : 12/02/19 Time of : 03:10 - Additional Data Confirmation of as documented by pronouncing clinician: no pulse, no respirations, no heart sounds, pupils fixed and dilated Attending/PCP notified?: Yes Attending physician: Byron Cade MD Was code activated?: No Autopsy requested?: No life claims examiner notified?: No Organ bank notified?: Yes Advance directives: Yes Hospice patient?: Yes
--- NOTE | 2019-12-02 04:13 | PC.NURSE ---
0304 attempted to notify family of change in pt condition, message left [phone] specialty manufacturing supervisor notified that pt has 0310 Dr. Cade to pronounce pt [phone] attempted to call Atul Colon, son of pt condition, message left again [phone] DESIREE contacted, Shannan Lovell patient portal representative, , pt ruled out for donation [phone] attempted to call Atul Colon, another message left [phone] sister Christine Colon contacted by housekeeping aid [phone] attempted to call Atul Colon again [phone] attempted to call Jake salcedo, message left
--- NOTE | 2019-12-02 07:07 | PC.NURSE ---
hospice contacted at [phone]
--- NOTE | 2019-12-02 08:18 | PC.NURSE ---
CALLED [facility] [place], [place] TO LET THEM KNOW THE FAMILY IS REQUESTING THEM TO DO THE SERVIES FOR THE PT. THEY STATED THEY WOULD BE OVER TO VEHICLE CALIBRATION ENGINEER THE PATIENT SOON THEY COULD.
--- NOTE | 2019-12-02 09:50 | PC.NURSE ---
HOME AT BEDSIDE TALKING TO FAMILY.
--- NOTE | 2019-12-02 10:15 | PC.NURSE ---
ASSISTED HOME STAFF WITH LOADING PATIENT ONTO STRETCHER. PT IS LEAVING WITH HOME STAFF NOW.
== END 2019-12-02 10:15 | disposition expired | DRG 432 ==
LOC: ER 21:25 → 2ND 21:36
PROVIDERS: Nurse Practitioner Family; Admitting Provider Emergency Medicine; Emergency Provider Student in an Organized Health Care Education/Training Program; PCP Emergency Medicine; Visit Provider Emergency Medicine
DX: K74.60 Unspecified cirrhosis of liver (principal); K76.7 Hepatorenal syndrome; Z86.19 Personal history of other infectious and parasitic diseases; L89.152 Pressure ulcer of sacral region, stage 2; E83.52 Hypercalcemia; Z79.84 Long term (current) use of oral hypoglycemic drugs; N18.30 Chronic kidney disease, stage 3 unspecified; J44.9 Chronic obstructive pulmonary disease, unspecified; E11.9 Type 2 diabetes mellitus without complications; R16.1 Splenomegaly, not elsewhere classified; G31.9 Degenerative disease of nervous system, unspecified; F02.80 Dementia in other diseases classified elsewhere, unspecified severity, without behavioral disturbance, psychotic disturbance, mood disturbance, and anxiety
CPT/HCPCS: 36415; 70450; 71045; 74176; 80048; 80053; 80076; 81001; 82140; 82272; 82962; 83605; 83690; 83735; 85025; 85610; 86328; 87040; 87086; 94761; 96365; 96367; 96375; 99284; G0328; G0378; J1335; J2405; U0003